=== PATIENT | female | born 1980 | race Caucasian/White ===

== ENCOUNTER 2020-06-28 11:44 | Emergency (ER) | payer MEDICAID, SELFPAY ==
[2020-06-28 12:07] VITALS: BP 190/96; PULSE 70; RESP 18; TEMP 36; O2SAT 99
--- NOTE | 2020-06-28 12:25 | XR_ITS ---
EXAMINATION: XR SACRUM AND COCCYX CLINICAL INFORMATION: Pain post fall COMPARISON: None TECHNIQUE: 2 views of the sacrum and 2 views of the coccyx were obtained. FINDINGS: There are no fractures. No bone, joint or soft tissue abnormality is demonstrated. XR/XR sacrum coccyx min 2V IMPRESSION: Unremarkable examination.
--- NOTE | 2020-06-28 13:02 | ED.FALL ---
HPI - Fall General Chief Complaint: Fall Stated Complaint: fall Time Seen by Provider: 06/28/20 12:24 Source: patient Mode of arrival: ambulatory Limitations: no limitations History of Present Illness HPI Narrative: 40 y/o female with history of gastric bypass presents with buttocks pain after she slipped and fell on her wooden steps at home last night. She denies other injury. No numbness or tingling down her legs. She has difficulty walking because of the pain. She has taken tylenol and aleve without improvement. Related Data Previous Rx's Medication Instructions Recorded acetaminophen [Tylenol Arthritis 650 mg PO Q8H PRN #30 tab 06/28/20 Pain] oxycodone 5 mg PO Q6H PRN #10 tab 06/28/20 Allergies Allergy/AdvReac Type Severity Reaction Status Date / Time No Known Allergies Allergy Verified 06/28/20 12:07 [No Known Allergies*] Review of Systems Review of Systems: Constitutional: No Fever, No Chills Cardiovascular: No Chest Pain Respiratory: No Cough, No Sputum Gastrointestinal: No Nausea, No Vomiting, No Diarrhea, No abdominal Pain Musculoskeletal: + joint pain, + Myalgias Skin: No Skin Lesions Neuro: No Weakness, No Numbness, No Dizziness, No Headache Heme/Lymph: + Bruising PMFSH Past Medical History Attestation statement: The following information was validated with the patient. Surgical History Bariatric surgery status deliv NOS-unsp Social History Social History Advance Directives: No Advance Directives Information Provided: No Physical Exam Vital Signs: Vital Signs: Last Vital Signs Temp 96.8 F 06/28/20 12:07 Pulse 55 06/28/20 13:24 Resp 18 06/28/20 12:07 BP 163/71 H 06/28/20 13:24 Pulse Ox 99 06/28/20 12:07 Body Mass Index 30.0 Appearance: Alert. Oriented X3. No acute distress. HEENT: normal inspection Respiratory: No respiratory distress. Skin: Skin warm and dry. Normal skin color. Normal skin turgor. No rashes. Back: tenderness and ecchyosis over coccyx, no palpable deformity. pelvis is stable. Extremities: atraumtic, normal inspection of LE. Neuro: Oriented X 3. No motor deficit. No sensory deficit. Course Course Course Narrative: 40 y/o female presenting with coccyx injury. XR negative for fracture. Exam has bruising and tenderness consistent with contusion. Ice applied - Rx sent for oxycodone and tylenol. Unable to take NSAID due to gastric bypass history. BP very elevated on arrival - she reports prior hx of HTN but no longer with her weight loss. She also reports having white coat syndrome and thinks her BP is also elevated due to pain. She denies chest pain, vision changes, headache. Repeat BP 160/70's. Stable for d/c. Discharge Plan Discharge Clinical Impression: Coccyx contusion Qualifiers: Encounter type: initial encounter Qualified Code(s): S30.0XXA - Contusion of lower back and pelvis, initial encounter Patient Disposition: Home, Self-Care Instructions: Coccyx Injury (ED) Additional Instructions: Your x-ray today did not show any fractures or abnormalities. Continue to use your circular pillow as needed. Use ice several times per day. Take prescribed pain medications as needed for pain. Follow up with your doctor next week. Prescriptions: New acetaminophen [Tylenol Arthritis Pain] 650 mg tablet extended release 650 mg PO Q8H PRN (Reason: pain) Qty: 30 RF: 0 oxycodone 5 mg tablet 5 mg PO Q6H PRN (Reason: pain) Qty: 10 RF: 0 Interventions: ED Discharge Assessment Last Done: 06/28/20 13:21 Discharge Date/Time: 06/28/20 13:25
[2020-06-28 13:24] VITALS: BP 163/71; PULSE 55
== END 2020-06-28 13:25 | disposition home or self-care (01) ==
PROVIDERS: Emergency Provider Emergency Medicine Emergency Medical Services; PCP Internal Medicine
DX: S30.0XXA Contusion of lower back and pelvis, initial encounter (principal); M54.5 Low back pain; M79.605 Pain in left leg; M79.604 Pain in right leg; Z98.84 Bariatric surgery status
CPT/HCPCS: 72220; 99283

== ENCOUNTER 2021-03-21 08:09 | Outpatient (REF) | payer MEDICAID, SELFPAY | END 2021-03-21 08:10 | disposition home or self-care (01) | LOC: HO.HOSX 08:09 | PROVIDERS: Visit Provider Physician Assistant | DX: Z13.89 Encounter for screening for other disorder (principal) ==

== ENCOUNTER 2021-08-31 20:06 | Emergency (ER) | payer MEDICAID, SELFPAY ==
--- NOTE | ~2021-08-31 | CT_ITS ---
EXAMINATION: CT HEAD WITHOUT CONTRAST CLINICAL INFORMATION: Fall. Head trauma. Rule out bleed. COMPARISON: Previous head CT April 2020 TECHNIQUE: Contiguous axial imaging was performed from the skull base to vertex without intravenous administration of contrast. This CT examination was performed using dose optimization techniques as appropriate, variously including the following: *Automated exposure control *Adjustment of mA and/or kV according to patient size (this includes techniques or standardized protocols for targeted exams where dose is matched to indication/reason for exam; i.e. extremities or head) *Use of iterative reconstruction technique DLP: 782 mGy-cm FINDINGS: There is no evidence of an extra-axial collection. There is no evidence of intra-axial or extra-axial hemorrhage. The ventricles and extra-axial CSF spaces are appropriate. Martines-white matter differentiation is normal. There is a low-attenuation lesion in the left basal ganglia unchanged from previous exams suggestive of an old lacunar infarct. No mass, mass effect or acute infarct is seen. There is high attenuation soft tissue swelling over the right frontal bone suggestive of a scalp hematoma. No skull fracture is seen. Visualized paranasal sinuses, mastoid air cells and middle ears are clear. CT/CT head/brain wo con IMPRESSION: No acute findings. Old left basal ganglia lacunar infarct. Right scalp hematoma.
[2021-08-31 20:08] VITALS: BP 188/100; PULSE 98; RESP 18; TEMP 36.6; O2SAT 99; BMI 29.1
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
[2021-08-31 20:42] LABS: COVID-19 Test Negative (Negative)
[2021-08-31] MEDS: LORazepam 1 MG TABLET 2 MG PO (20:46)
--- NOTE | 2021-08-31 20:49 | PC.NURSE ---
Pt is changed over into hospital attire, labs drawn and pt medicated per Mar. Will continue monitor.
[2021-08-31 20:55] LABS: MANUAL DIFF FLAG NO
[2021-08-31 20:58] LABS: Basophils Percent Auto 0.7 % (0-2); Eosinophils Absolute Auto 0.1 X10*3/uL (0.0-0.4); Eosinophils Percent Auto 1.5 % (0-4); Hematocrit 38.6 % (37.0-47.0); Imm Gran Abs Auto 0.01 X10*3/uL (0.00-0.03); Imm Gran Pct Auto 0.2 % (0.0-0.4); Lymphocytes Absolute Auto 2.9 X10*3/uL (1.2-4.9); Lymphocytes Percent Auto 48.5 % (20-40); Mean Corpuscular HGB Conc 33.7 g/dl (31.0-35.0); Mean Corpuscular Hemoglobin 31.4 pg (27.0-33.0); Mean Corpuscular Volume 93.2 fL (80.0-98.0); Monocytes Absolute Auto 0.4 X10*3/uL (0.1-1.2); Monocytes Percent Auto 5.9 % (2-11); Neutrophils Absolute Auto 2.6 x10*3/uL (2.0-8.3); Neutrophils Percent Auto 43.2 % (45-73); Platelet Count 158 X10*3/uL (160-400); Red Blood Count 4.14 X10*6/uL (4.20-5.50); Red Cell Distribution Width 14.3 % (11.0-16.0)
[2021-08-31 21:14] LABS: Ethanol 292 mg/dL
[2021-08-31 21:17] LABS: Alanine Aminotransferase 27 U/L (0-31); Albumin Level 3.9 g/dL (3.5-5.0); Alkaline Phosphatase 78 U/L (39-117); Anion Gap 17 (12-20); Aspartate Amino Transferase 44 U/L (5-31); Bilirubin Total 0.7 mg/dL (0.0-1.0); Blood Urea Nitrogen 8 mg/dL (9-16); Calcium 8.4 mg/dL (8.4-10.2); Carbon Dioxide 24 mmol/L (22-29); Chloride 106 mmol/L (96-108); Creatinine Clr Calc Pharmacy 114.5; Estimated Glomerular Filt Rate > 60; Glucose Random 78 mg/dL (60-115); Potassium 3.1 mmol/L (3.3-5.1); Sodium 144 mmol/L (135-145); Total Protein 7.2 g/dL (6.5-8.0)
--- NOTE | 2021-08-31 21:20 | PC.NURSE ---
PT MEDICATED PER MAR
--- NOTE | 2021-08-31 21:22 | PC.NURSE ---
PT MEDICATED PER MAR.
[2021-09-01] MEDS: Potassium Bicarbonate/Cit AC 25 MEQ TABLET.EFF PO (00:11)
[2021-09-01] MEDS: Thiamine HCL 100 MG TABLET PO (01:26)
[2021-09-01] MEDS: Folic Acid 1 MG TABLET PO (01:26)
[2021-09-01 03:54] VITALS: BP 168/98; PULSE 82; RESP 20; TEMP 37.1; O2SAT 95
--- NOTE | 2021-09-01 06:03 | PC.NURSE ---
Patient slept through the night, no distress observed/reported, behavior appropriate, medication compliant, [facility] referral completed/confirmed, pending evaluation in the morning, asymptomatic withdrawal at this time, will continue to monitor.
[2021-09-01 06:49] LABS: Appearance Urine CLOUDY; Color Urine YELLOW; Glucose Urine UA NEG (NEG); Leukocyte Esterase Urine TRACE (NEG); Nitrite Urine POS (NEG); UACC Culture Trigger YES; Urine Blood NEG (NEG); Urine Ketones NEG (NEG); Urine Protein TRACE MG/DL (NEG-TRACE)
[2021-09-01 06:50] LABS: UPreg QC Valid YES; Urine Pregnancy NEGATIVE (NEGATIVE)
[2021-09-01 06:59] LABS: Amphetamine Screen Urine Not Detected (Not Detect); Barbiturates, Urine Not Detected (Not Detect); Benzodiazepines Screen Urine Not Detected (Not Detect); Cannabinoid Screen Urine POSITIVE (Not Detect); Cocaine Screen Urine POSITIVE (Not Detect); Fentanyl, urine Not Detected (Not Detect); Opiate Screen Urine Not Detected (Not Detect); Phencyclidine Screen Urine Not Detected (Not Detect)
[2021-09-01 07:02] LABS: Bacteria Urine 4+ /LPF; RBC Urine 0 /HPF (0); Squamous Epithelial Cell Urine 2+ /LPF; UACC CULT YES
[2021-09-01] MEDS: LORazepam 1 MG TABLET 2 MG PO ×3 (09:19→19:25)
--- NOTE | 2021-09-01 09:42 | MHC.CARE ---
Pt is a 41 year old female who presented to [facility] ED with a BAL 292 on 09/01/21 reporting suicidal ideation and wanting to get help. Pt is now clinically sober and reporting to t/w she came to the ED with her alcohol use and wanting to get into treatment. Pt presents as alert orientated and engaged with t/w. Pt reported drinking daily for the past 2-3 months and recently started feeling withdrawal symptom when she isn't drinking.. Pt denies current SI/HI/AH/VH. Pt reports no prior IPLOC admission . Plan for Pt to be referred to ATS placement. CARE Team reviewed plan with Dr. Frias who is in agreement with plan.
--- NOTE | 2021-09-01 09:52 | MHC.CARE ---
CARE Team to complete referral for [facility].
--- NOTE | 2021-09-01 09:58 | PC.NURSE ---
Pt received from material handler 1st shift: Pt AOX4 and offers mild complaints of anxiety. PRN ativan given. Heart sounds normal and lungs clear. Pt abd soft and non-tender. CARES to evaluate pt.
[2021-09-01] MEDS: Ondansetron ODT 4 MG TAB.RAPDIS TRANSLINGU ×3 (11:30→19:44)
--- NOTE | 2021-09-01 14:03 | MHC.CARE ---
CARE Team completed referral for [facility]
--- NOTE | 2021-09-01 15:03 | MHC.RECOVSUP ---
Recovery Support note: Patient is a 41 year old Congolese speaking female who presented to [facility] ED under the influence of alcohol reporting SI. Patient was evaluated by CARE Team and referred to this senior grant writer for assistance placing patient at an ATS facility. This senior grant writer discussed plan with patient and patient is in agreement. Patient has been referred to [facility] and completed phone intake. Nursing staff at [facility] requested a CT scan due to reported fall. CT report has been sent to nursing for review. Once approved, patient will be transported to [facility] via [facility] or [facility]. Discussed case with CARE Team.
[2021-09-01 19:26] VITALS: BP 189/97; PULSE 73; RESP 18; TEMP 36.8; O2SAT 97
[2021-09-01] MEDS: Potassium Chloride Packet 20 MEQ PACKET 40 MEQ PO (19:43)
[2021-09-01] MEDS: Nitrofurantoin Monohyd/M-Cryst 100 MG CAPSULE PO (19:44)
--- NOTE | 2021-09-01 21:04 | MHC.RECOVSUP ---
? Reason for consult:Recovery Support o Current location: Discharged o Identified substance use concern: - Seeking ATS (detox) - Support ? Intervention: o ATS bed search started/completed/in process ? Plan o Patient to follow up with [facility] after discharge ? Additional information: Patient sent to Siddharth Larios via [email or web address]
== END 2021-09-01 20:10 | disposition home or self-care (01) ==
PROVIDERS: Internal Medicine; Emergency Provider Emergency Medicine Emergency Medical Services
DX: F33.1 Major depressive disorder, recurrent, moderate (principal); R45.851 Suicidal ideations; F10.129 Alcohol abuse with intoxication, unspecified; R51.9 Headache, unspecified; Y90.8 Blood alcohol level of 240 mg/100 ml or more; F41.1 Generalized anxiety disorder; F43.0 Acute stress reaction; Z20.822 Contact with and (suspected) exposure to COVID-19; Z79.899 Other long term (current) drug therapy
CPT/HCPCS: 36415; 70450; 80053; 80307; 81001; 81025; 82077; 83735; 85025; 87086; 87088; 87186; 87635; 99284

== ENCOUNTER 2022-03-30 15:01 | Emergency (ER) | payer MEDICAID, SELFPAY ==
[2022-03-30 15:05] VITALS: BP 146/100; PULSE 87; RESP 18; TEMP 37.2; O2SAT 98; BMI 29.9
== END 2022-03-30 21:50 | disposition left against medical advice (07) ==
LOC: HO.ED 21:42
PROVIDERS: Emergency Provider Emergency Medicine; PCP Internal Medicine
DX: T78.40XA Allergy, unspecified, initial encounter (principal); L50.9 Urticaria, unspecified; X58.XXXA Exposure to other specified factors, initial encounter
CPT/HCPCS: 99281

== ENCOUNTER 2022-04-02 20:15 | Emergency (ER) | payer MEDICAID, SELFPAY ==
--- NOTE | ~2022-04-02 | CT_ITS ---
EXAMINATION: CT ABDOMEN AND PELVIS WITHOUT CONTRAST CLINICAL INFORMATION: Right flank pain COMPARISON: 04/27/2020 TECHNIQUE: Multidetector volumetric imaging was performed from the superior aspect of the liver through the pubic symphysis. Sagittal and coronal reformatted images were obtained on the technologist's workstation. This CT examination was performed using dose optimization techniques as appropriate, variously including the following: *Automated exposure control *Adjustment of mA and/or kV according to patient size (this includes techniques or standardized protocols for targeted exams where dose is matched to indication/reason for exam; i.e. extremities or head) *Use of iterative reconstruction technique DLP: 621 mGy-cm FINDINGS: LUNG BASES: The visualized lung bases are unremarkable. LIVER, GALLBLADDER, AND BILIARY TREE: Liver is normal in size, contour and morphology. Diffuse hepatic steatosis. No focal liver lesions. No biliary dilatation. Cholecystectomy. PANCREAS: Unremarkable. SPLEEN: Unremarkable. ADRENAL GLANDS: Unremarkable. KIDNEYS AND URETERS: The kidneys are normal in size, shape, and attenuation. No hydronephrosis, hydroureter, or calculi seen. No perinephric stranding. BLADDER: Unremarkable. GASTROINTESTINAL TRACT: Sleeve gastrectomy. The small and large bowel are unremarkable. The appendix is unremarkable. ABDOMINAL WALL: No significant hernia is appreciated. LYMPH NODES: Normal. VASCULAR: Aorta is mildly atherosclerotic but normal caliber. PELVIC VISCERA: Uterus and ovaries unremarkable. OSSEOUS STRUCTURES: No acute or suspicious osseous abnormalities. CT/CT abdomen pelvis wo IV con IMPRESSION: * No acute findings within the abdomen or pelvis. * Diffuse hepatic steatosis. * Sleeve gastrectomy and cholecystectomy.
[2022-04-02 20:26] VITALS: BP 170/93; BP 172/91; PULSE 96; PULSE 97; RESP 16; TEMP 36.8; O2SAT 95; O2SAT 96; BMI 33.4
[2022-04-02 20:32] LABS: Glucose, Whole Blood 71 mg/dL (60-115)
--- NOTE | 2022-04-02 20:44 | ED.FEMALEGU ---
HPI - Female Genitourinary General Chief complaint: Urogenital-Female Stated complaint: Rt side Flank Pain Time Seen by Provider: 04/02/22 20:44 Source: patient Mode of arrival: EMS Limitations: no limitations History of Present Illness HPI Narrative: Patient with no history of kidney stones complaining of pain right flank area radiating to the right lower abdomen for last 1 week got worse last night with nausea no vomiting no urinary complaints. Patient never had similar pain in the past Related Data Previous Rx's Medication Instructions Recorded nitrofurantoin 100 mg PO Q12H 7 days #14 caps 09/01/21 monohydrate/macrocrystals 100 mg capsule (Macrobid) tramadol 50 mg tablet 50 mg PO Q6H PRN pain #15 tabs 04/03/22 Allergies Allergy/AdvReac Type Severity Reaction Status Date / Time No Known Allergies Allergy Verified 08/31/21 20:08 [No Known Allergies*] Review of Systems Review of Systems: Yes all other systems are reviewed and are negative PMFSH Past Medical History Surgical History Bariatric surgery status deliv NOS-unsp Social History Social History Advance Directives: No Advance Directives Information Provided: Yes Physical Exam Vital Signs: Vital Signs: Last Vital Signs Temp 98.2 F 04/02/22 20:26 Pulse 96 04/02/22 20:26 Resp 16 04/02/22 20:26 BP 170/93 H 04/02/22 20:26 Pulse Ox 95 04/02/22 20:26 O2 Del Method 04/02/22 20:26 BMI result Body Mass Index 33.4 Appearance: Alert. Oriented X3. In moderate distress. ENT: Pharynx normal. Oral Mucosa moist Neck: Normal inspection. Neck supple. CVS: Normal heart rate and rhythm. Pulses normal. Respiratory: No respiratory distress. Equal air entry bilateral, no wheezing/rales/rhonchi Abdomen: Soft and nontender. Bowel sounds are present, no mass palpable, R CVA tenderness Skin: Skin warm and dry. Normal skin color. Normal skin turgor. Extremities: No lower extremity edema. No calf tenderness Neuro: Oriented X 3. No motor deficit. MDM - Female Genitourinary MDM Narrative Medical decision making narrative: 2199 Patient very sensitive to even touching the right flank area no vomiting eating well at home not sure possible UTI versus kidney stone. CT scan is negative for anything acute awaiting for the UA Patient very dramatic with pain urine is negative except for small amount of blood as patient is on her menses likely musculoskeletal pain Differential Diagnosis Differential diagnosis: Likely urinary tract infection and ovarian cyst Lab Data Attestation: I reviewed the patient's lab results. Result diagrams: 04/02/22 21:03 04/02/22 21:03 Labs: Lab Results 04/02/22 04/02/22 04/02/22 Range/Units 20:29 21:03 21:03 WBC 5.7 (4.8-10.8) X10*3/uL RBC 4.22 (4.20-5.50) X10*6/uL Hgb 12.7 (12.0-16.0) g/dl Hct 37.4 (37.0-47.0) % MCV 88.6 (80.0-98.0) fL MCH 30.1 (27.0-33.0) pg MCHC 34.0 (31.0-35.0) g/dl RDW 15.8 (11.0-16.0) % Plt Count 157 L (160-400) X10*3/uL MPV 10.0 (9.4-12.3) fL Immature Gran % (Auto) 0.2 (0.0-0.4) % Neut % (Auto) 57.4 (45-73) % Lymph % (Auto) 27.1 (20-40) % [place] % (Auto) 5.2 (2-11) % Eos % (Auto) 8.9 H (0-4) % Baso % (Auto) 1.2 (0-2) % Lymph # (Auto) 1.6 (1.2-4.9) X10*3/uL [place] # (Auto) 0.3 (0.1-1.2) X10*3/uL Eos # (Auto) 0.5 H (0.0-0.4) X10*3/uL Baso # (Auto) 0.1 (0.0-0.2) X10*3/uL Abs Immat Gran (auto) 0.01 (0.00-0.03) X10*3/uL Absolute Neuts (auto) 3.3 (2.0-8.3) x10*3/uL Absolute Nucleated RBC 0.000 (0.0-0.012) X10*3/uL Nucleated RBC % (auto) 0.0 (0.0-0.2) /100WBC Sodium 138 (135-145) mmol/L Potassium 3.7 (3.3-5.1) mmol/L Chloride 104 (96-108) mmol/L Carbon Dioxide 17 L (22-29) mmol/L Anion Gap 21 H (12-20) BUN 10 (9-16) mg/dL Creatinine 0.61 (0.5-1.4) mg/dL Estim Creat Clear Calc 131.9 Estimated GFR > 60 POC Glucose 71 (60-115) mg/dL Random Glucose 85 (60-115) mg/dL Calcium 7.9 L (8.4-10.2) mg/dL Total Bilirubin 1.2 H (0.0-1.0) mg/dL AST 26 D (5-31) U/L ALT 15 (0-31) U/L Alkaline Phosphatase 77 (39-117) U/L Total Protein 6.8 (6.5-8.0) g/dL Albumin 3.8 (3.5-5.0) g/dL Lipase 17 (8-78) U/L Urine Color Urine Appearance Urine pH (5.0-9.0) Ur Specific [place] (1.005-1.025) Urine Protein (Neg-Trace) mg/dL Urine Glucose (UA) (Negative) mg/dL Urine Ketones (Negative) mg/dL Urine Blood (Negative) Urine Nitrite (Negative) Ur Leukocyte Esterase (Negative) Urine RBC (0-2) /HPF Urine WBC (0-5) /HPF Ur Squamous Epith Cells (0-2) /HPF Urine Bacteria (None Seen) Hyaline Casts (0-2) /LPF 04/02/22 Range/Units 23:33 WBC (4.8-10.8) X10*3/uL RBC (4.20-5.50) X10*6/uL Hgb (12.0-16.0) g/dl Hct (37.0-47.0) % MCV (80.0-98.0) fL MCH (27.0-33.0) pg MCHC (31.0-35.0) g/dl RDW (11.0-16.0) % Plt Count (160-400) X10*3/uL MPV (9.4-12.3) fL Immature Gran % (Auto) (0.0-0.4) % Neut % (Auto) (45-73) % Lymph % (Auto) (20-40) % Gladwin % (Auto) (2-11) % Eos % (Auto) (0-4) % Baso % (Auto) (0-2) % Lymph # (Auto) (1.2-4.9) X10*3/uL [place]win # (Auto) (0.1-1.2) X10*3/uL Eos # (Auto) (0.0-0.4) X10*3/uL Baso # (Auto) (0.0-0.2) X10*3/uL Abs Immat Gran (auto) (0.00-0.03) X10*3/uL Absolute Neuts (auto) (2.0-8.3) x10*3/uL Absolute Nucleated RBC (0.0-0.012) X10*3/uL Nucleated RBC % (auto) (0.0-0.2) /100WBC Sodium (135-145) mmol/L Potassium (3.3-5.1) mmol/L Chloride (96-108) mmol/L Carbon Dioxide (22-29) mmol/L Anion Gap (12-20) BUN (9-16) mg/dL Creatinine (0.5-1.4) mg/dL Estim Creat Clear Calc Estimated GFR POC Glucose (60-115) mg/dL Random Glucose (60-115) mg/dL Calcium (8.4-10.2) mg/dL Total Bilirubin (0.0-1.0) mg/dL AST (5-31) U/L ALT (0-31) U/L Alkaline Phosphatase (39-117) U/L Total Protein (6.5-8.0) g/dL Albumin (3.5-5.0) g/dL Lipase (8-78) U/L Urine Color Yellow Urine Appearance Clear Urine pH 6.0 (5.0-9.0) Ur Specific [place] >= 1.030 H (1.005-1.025) Urine Protein Negative (Neg-Trace) mg/dL Urine Glucose (UA) Negative (Negative) mg/dL Urine Ketones 40 (Negative) mg/dL Urine Blood Large (3+) H (Negative) Urine Nitrite Negative (Negative) Ur Leukocyte Esterase Negative (Negative) Urine RBC 0-2 (0-2) /HPF Urine WBC 0-5 (0-5) /HPF Ur Squamous Epith Cells 6-10 (0-2) /HPF Urine Bacteria None Seen (None Seen) Hyaline Casts 0-2 (0-2) /LPF Imaging Data CT scan - abdomen: Attestation: I personally reviewed and interpreted this imaging study as follows: Radiologist's impression: CT/CT abdomen pelvis wo IV con IMPRESSION: *? No acute findings within the abdomen or pelvis. *? Diffuse hepatic steatosis. *? Sleeve gastrectomy and cholecystectomy. Discharge Plan Discharge Clinical Impression: Flank pain Patient Disposition: Home, Self-Care Instructions: Flank Pain (ED) Additional Instructions: No signs of infection or kidney stone was seen as a cause of pain Pain medication as prescribed and follow-up with PCP Prescriptions: New tramadol 50 mg tablet 50 mg PO Q6H PRN (Reason: pain) Qty: 15 0RF No Action nitrofurantoin monohyd/m-cryst [Macrobid] 100 mg capsule 100 mg PO Q12H 7 Days Qty: 14 0RF Rx Instructions: must administer with a meal/food
[2022-04-02] MEDS: Morphine Sulfate 4 MG/ML CARTRIDGE IVPUSH (21:10)
[2022-04-02] MEDS: ondansetron HCL 4 MG/2 ML VIAL IVPUSH (21:10)
[2022-04-02] MEDS: 0.9 % Sodium Chloride 1,000 ML 999 ML IV (21:11)
[2022-04-02 21:12] LABS: MANUAL DIFF FLAG NO
[2022-04-02 21:18] LABS: Basophils Absolute Auto 0.1 X10*3/uL (0.0-0.2); Basophils Percent Auto 1.2 % (0-2); Eosinophils Absolute Auto 0.5 X10*3/uL (0.0-0.4); Eosinophils Percent Auto 8.9 % (0-4); Hematocrit 37.4 % (37.0-47.0); Hemoglobin 12.7 g/dl (12.0-16.0); Imm Gran Abs Auto 0.01 X10*3/uL (0.00-0.03); Imm Gran Pct Auto 0.2 % (0.0-0.4); Lymphocytes Absolute Auto 1.6 X10*3/uL (1.2-4.9); Lymphocytes Percent Auto 27.1 % (20-40); Mean Corpuscular Hemoglobin 30.1 pg (27.0-33.0); Mean Corpuscular Volume 88.6 fL (80.0-98.0); Monocytes Absolute Auto 0.3 X10*3/uL (0.1-1.2); Monocytes Percent Auto 5.2 % (2-11); Neutrophils Absolute Auto 3.3 x10*3/uL (2.0-8.3); Neutrophils Percent Auto 57.4 % (45-73); Platelet Count 157 X10*3/uL (160-400); Red Blood Count 4.22 X10*6/uL (4.20-5.50); Red Cell Distribution Width 15.8 % (11.0-16.0); WBC ABN SCTR 1
[2022-04-02 21:19] LABS: WBC ABN SCTR FOR CBC 1; White Blood Count 5.7 X10*3/uL (4.8-10.8)
[2022-04-02 21:49] LABS: Alanine Aminotransferase 15 U/L (0-31); Albumin Level 3.8 g/dL (3.5-5.0); Alkaline Phosphatase 77 U/L (39-117); Anion Gap 21 (12-20); Aspartate Amino Transferase 26 U/L (5-31); Bilirubin Total 1.2 mg/dL (0.0-1.0); Blood Urea Nitrogen 10 mg/dL (9-16); Calcium 7.9 mg/dL (8.4-10.2); Carbon Dioxide 17 mmol/L (22-29); Chloride 104 mmol/L (96-108); Creatinine Clr Calc Pharmacy 131.9; Estimated Glomerular Filt Rate > 60; Glucose Random 85 mg/dL (60-115); Lipase 17 U/L (8-78); Potassium 3.7 mmol/L (3.3-5.1); Sodium 138 mmol/L (135-145); Total Protein 6.8 g/dL (6.5-8.0)
[2022-04-02 23:39] LABS: Appearance Urine Clear; Color Urine Yellow; Glucose Urine UA Negative (Negative); Leukocyte Esterase Urine Negative (Negative); Nitrite Urine Negative (Negative); Specific Gravity - Urine >= 1.030 (1.005-1.025); Urine Blood Large (3+) (Negative); Urine Ketones 40 mg/dL (Negative); Urine Protein Negative (Neg-Trace)
[2022-04-02] MEDS: Ketorolac Tromethamine 30 MG/ML VIAL IVPUSH (23:44)
[2022-04-02 23:45] LABS: Bacteria Urine None Seen (None Seen); Hyaline Casts Urine 0-2 /LPF (0-2); RBC Urine 0-2 /HPF (0-2); WBC Urine 0-5 /HPF (0-5)
[2022-04-03 00:28] VITALS: BP 170/82; PULSE 78; RESP 16; O2SAT 96
[2022-04-03] MEDS: traMADoL HCL 50 MG TABLET PO (00:44)
== END 2022-04-03 00:46 | disposition home or self-care (01) ==
PROVIDERS: Emergency Provider Internal Medicine
DX: R10.9 Unspecified abdominal pain (principal); Z98.84 Bariatric surgery status
CPT/HCPCS: 36415; 74176; 80053; 81001; 82947; 83690; 85025; 96374; 96375; 99284; J1885; J2270; J2405

== ENCOUNTER 2022-05-30 23:07 | Emergency (ER) | payer MEDICAID, SELFPAY ==
[2022-05-30 23:17] VITALS: BP 188/139; PULSE 83; RESP 19; TEMP 36.9; O2SAT 98; BMI 29.9
[2022-05-30 23:31] LABS: Basophils Absolute Auto 0.1 X10*3/uL (0.0-0.2); Basophils Percent Auto 1.6 % (0-2); Eosinophils Percent Auto 0.8 % (0-4); Hematocrit 40.4 % (37.0-47.0); Hemoglobin 13.7 g/dl (12.0-16.0); Lymphocytes Absolute Auto 2.9 X10*3/uL (1.2-4.9); Lymphocytes Percent Auto 58.5 % (20-40); MANUAL DIFF FLAG NO; Mean Corpuscular HGB Conc 33.9 g/dl (31.0-35.0); Mean Corpuscular Hemoglobin 30.9 pg (27.0-33.0); Mean Platelet Volume 9.4 fL (9.4-12.3); Monocytes Absolute Auto 0.4 X10*3/uL (0.1-1.2); Neutrophils Absolute Auto 1.6 x10*3/uL (2.0-8.3); Neutrophils Percent Auto 32.1 % (45-73); Platelet Count 210 X10*3/uL (160-400); Red Blood Count 4.44 X10*6/uL (4.20-5.50); Red Cell Distribution Width 17.5 % (11.0-16.0)
[2022-05-30 23:48] LABS: Alanine Aminotransferase 18 U/L (0-31); Albumin Level 4.1 g/dL (3.5-5.0); Alkaline Phosphatase 80 U/L (39-117); Anion Gap 16 (12-20); Aspartate Amino Transferase 33 U/L (5-31); Bilirubin Total 0.6 mg/dL (0.0-1.0); Blood Urea Nitrogen 10 mg/dL (9-16); Calcium 8.5 mg/dL (8.4-10.2); Carbon Dioxide 27 mmol/L (22-29); Chloride 107 mmol/L (96-108); Creatinine Clr Calc Pharmacy 120.2; Estimated Glomerular Filt Rate > 60; Ethanol 333 mg/dL; Glucose Random 86 mg/dL (60-115); Potassium 3.6 mmol/L (3.3-5.1); Sodium 146 mmol/L (135-145); Total Protein 7.5 g/dL (6.5-8.0)
[2022-05-31] VITALS (11 sets, daily range): BP systolic 140–160; BP diastolic 68–94; PULSE 74–81; RESP 16–24; TEMP 36.7; O2SAT 95–98
--- NOTE | 2022-05-31 00:07 | ED.ALCOHOL ---
HPI - Alcohol General Chief Complaint: ETOH/Substance Use Stated Complaint: withdrawal ,? detox Time Seen by Provider: 05/30/22 23:58 Source: patient Mode of arrival: ambulatory Limitations: no limitations History of Present Illness complaint: alcohol dependence and desires rehab Last drink: Just prior to admission Chronic alcohol use: Yes Previous visits for alcohol intoxication: Yes Recent trauma: No Associated symptoms: nausea and vomiting Treatments prior to arrival: none Related Data Previous Rx's Medication Instructions Recorded nitrofurantoin 100 mg PO Q12H 7 days #14 caps 09/01/21 monohydrate/macrocrystals 100 mg capsule (Macrobid) tramadol 50 mg tablet 50 mg PO Q6H PRN pain #15 tabs 04/03/22 Allergies Allergy/AdvReac Type Severity Reaction Status Date / Time No Known Allergies Allergy Verified 08/31/21 20:08 [No Known Allergies*] Review of Systems Review of Systems: Constitutional : No Weight loss, No Fever, No Chills ENT/Mouth : No sore throat, No Rhinorrhea Eyes: No Swelling, No Redness Cardiovascular : No Chest Pain, No SOB, NoEdema Respiratory : No Cough, No Sputum, No Wheezing Gastrointestinal : Positive Nausea, Positive Vomiting, no Diarrhea, no abdominal Pain, No Hematochezia, No Melena Genitourinary : No Dysuria, No Urinary Frequency, No Hematuria, No Urgency Musculoskeletal : No joint pain, No Myalgias, No Joint Swelling Skin : No Skin Lesions, No rash Neuro : No Weakness, No Numbness, No Dizziness, No Headache Psych : pos Anxiety/Panic, No Depression Heme/Lymph: No Bruising, No Lymphadenopathy Endocrine : No Polyuria, No Polydipsia All other systems reviewed and are negative. [facility] Past Medical History Attestation statement: The following information was validated with the patient. Medical History Alcohol abuse Surgical History Bariatric surgery status deliv NOS-unsp Social History Social History (Updated 05/31/22 @ 00:27 by Pratima Rushing DO) Alcohol intake: current Patient Tobacco Use Status: Current someday Tobacco user Advance Directives: No Physical Exam ED Vital Signs: Vital Signs - 24 hr 05/30/22 23:17 Temperature 98.5 F Pulse Rate 83 Respiratory Rate 19 Blood Pressure 188/139 H Pulse Oximetry 98 Oxygen Delivery Method Room Air BMI result Body Mass Index 29.9 Appearance: Alert. Oriented X3. No acute distress. ETOH odor, slurred speech, active vomiting Eyes: Pupils equal, round and reactive to light. ENT: Pharynx normal. Neck: Normal inspection. Neck supple. CVS: Normal heart rate and rhythm. Pulses normal. Respiratory: No respiratory distress. Breath sounds normal. Abdomen: Soft and nontender. Skin: Skin warm and dry. Normal skin color. Normal skin turgor. Extremities: No lower extremity edema. Neuro: Oriented X 3. No motor deficit. No sensory deficit. Course Course Course Narrative: Physician observation started at 1228am. Patient placed in physician observation because the patient needed more time for medications to work and to see CARE team/recovery coaches to be evaluated for detox. At the time observation was started the patient's vitals were stable, patient is alert and oriented but slightly anxious and vomiting, Neuro: nonfocal, CV RRR, Lungs clear MDM - Alcohol MDM Narrative Medical decision making narrative: 42 yo female with hx of ETOH abuse here with vomiting and ETOH level of 333 asking for detox help at this time will obtain labs, hydrate, start on thiamine, give zofran and dose of versed, PRN ativan and refer to recovery team in AM. Lab Data Result diagrams: 05/30/22 23:24 05/30/22 23:24 Labs: Lab Results 05/30/22 05/30/22 Range/Units 23:24 23:24 WBC 5.0 (4.8-10.8) X10*3/uL RBC 4.44 (4.20-5.50) X10*6/uL Hgb 13.7 (12.0-16.0) g/dl Hct 40.4 (37.0-47.0) % MCV 91.0 (80.0-98.0) fL MCH 30.9 (27.0-33.0) pg MCHC 33.9 (31.0-35.0) g/dl RDW 17.5 H (11.0-16.0) % Plt Count 210 D (160-400) X10*3/uL MPV 9.4 (9.4-12.3) fL Immature Gran % (Auto) 0.0 (0.0-0.4) % Neut % (Auto) 32.1 L (45-73) % Lymph % (Auto) 58.5 H (20-40) % [place] % (Auto) 7.0 (2-11) % Eos % (Auto) 0.8 (0-4) % Baso % (Auto) 1.6 (0-2) % Lymph # (Auto) 2.9 (1.2-4.9) X10*3/uL [place] # (Auto) 0.4 (0.1-1.2) X10*3/uL Eos # (Auto) 0.0 (0.0-0.4) X10*3/uL Baso # (Auto) 0.1 (0.0-0.2) X10*3/uL Abs Immat Gran (auto) 0.00 (0.00-0.03) X10*3/uL Absolute Neuts (auto) 1.6 L (2.0-8.3) x10*3/uL Absolute Nucleated RBC 0.000 (0.0-0.012) X10*3/uL Nucleated RBC % (auto) 0.0 (0.0-0.2) /100WBC Sodium 146 H (135-145) mmol/L Potassium 3.6 (3.3-5.1) mmol/L Chloride 107 (96-108) mmol/L Carbon Dioxide 27 (22-29) mmol/L Anion Gap 16 (12-20) BUN 10 (9-16) mg/dL Creatinine 0.65 (0.5-1.4) mg/dL Estim Creat Clear Calc 120.2 Estimated GFR > 60 Random Glucose 86 (60-115) mg/dL Calcium 8.5 D (8.4-10.2) mg/dL Total Bilirubin 0.6 (0.0-1.0) mg/dL AST 33 H (5-31) U/L ALT 18 (0-31) U/L Alkaline Phosphatase 80 (39-117) U/L Total Protein 7.5 (6.5-8.0) g/dL Albumin 4.1 (3.5-5.0) g/dL Ethyl Alcohol 333 H* mg/dL Discharge Plan Discharge Clinical Impression: Alcoholic intoxication, Vomiting Patient Disposition: Still a Patient Prescriptions: No Action tramadol 50 mg tablet 50 mg PO Q6H PRN (Reason: pain) Qty: 15 0RF nitrofurantoin monohyd/m-cryst [Macrobid] 100 mg capsule 100 mg PO Q12H 7 Days Qty: 14 0RF Rx Instructions: must administer with a meal/food
[2022-05-31] MEDS: 0.9 % Sodium Chloride 1,000 ML 999 ML IV (00:19)
[2022-05-31] MEDS: Midazolam HCl/PF 2 MG/2 ML VIAL IVPUSH (00:19)
[2022-05-31] MEDS: ondansetron HCL 4 MG/2 ML VIAL IVPUSH (00:19)
--- OUTSIDE RECORDS SUMMARY | 2022-05-31 00:22 | XMS_ITS | Continuity of Care Document ---
:1980 Author Organization [facility] Address [address] [place] [id number]- Care Team Providers Name Role Phone Emma Honag MD Primary Care Physician [place] [facility] [place] - 04/21/[address] [address]- Encounter Diagnosis Leg pain (Final) - 04/21/22 Discharge Disposition: A-D/C Home Attending Physician: Mookie Tolentino MD Admitting Physician: Mookie Tolentino MD Referring Physician: Not on Staff, Referring MD Allergies, Adverse Reactions, Alerts No Known Allergies Immunizations Given and Recorded Vaccine Date Status Refusal Reason tetanus/diphtheria/pertussis, acel(Tdap) 11/12/14 Given Tetanus Toxoid Vaccine (oldterm) 01/30/03 Given Not Given Vaccine Date Status Refusal Reason pneumococcal 23-valent vaccine 04/28/20 Not Given P atient Refuses pneumococcal 23-valent vaccine 02/09/15 Not Given P atient Refuses influenza virus vaccine, inactivated 04/28/20 Not Given Patient Refuses Medications Depo-Provera Contraceptive 150 mg/mL intramuscular suspension = 150 mg, Intramuscular, Once, # 1 mL, 0 Refills, Soft Stop, 10/26/18 12:35:18 EDT Start Date: 10/26/18 Status: Ordereddocusate sodium 100 mg oral capsule 100 mg, 1, capsule, By Mouth, 2 times a day, # 60 capsule, Refills 0, Tot. Refills 0, Maintenance, 04/30/20 11:14:00 EDT, Route to Pharmacy Electronically, [facility], 164, cm, 04/29/20 3:39:00 EDT, Height, 81, kg, 04/27/20 10:33:00 EDT,... Start Date: 04/30/20 Status: Orderedlisinopril 5 mg oral tablet 5 mg, 1, tablet, By Mouth, Daily, # 14 tablet, Refills 0, Tot. Refills 0, Maintenance, 01/17/18 15:00:00 EDT, Print Requisition Start Date: 01/17/18 Stop Date: 01/31/18 Status: Ordered Problem List Condition Effective Dates Status Health Status Informant No pap smears in CIS(Confirmed) Active Sleep related hypoxia(Confirmed) Active Morbid obesity with BMI of 40.0-44.9, Active adult(Confirmed) AMA (advanced maternal age) Active multigravida 35+(Confirmed) DELROY (obstructive sleep Active apnea)(Confirmed) Current tobacco use(Confirmed) Active Vital Signs Most recent to oldest [Reference Range]: 1 Height 165 cm (04/21/22 1:43 PM) Weight 82 kg (04/21/22 1:43 PM) Oxygen Saturation [94-100 %] 98 % (04/21/22 1:54 PM) Pulse Rate [55-90 bpm] 74 bpm (04/21/22 1:54 PM) Blood Pressure [90-138/55-84 mm Hg] 147/83 mm Hg *H* (04/21/22 1:54 PM) Respiratory Rate [16-30 br/min] 18 br/min (04/21/22 1:54 PM) Temperature [96.8-100.4 DegF] 98.6 DegF (04/21/22 1:54 PM) Mode of Delivery (Oxygen) Room air (04/21/22 1:54 PM) Blood pressure sites Arm, right (04/21/22 1:54 PM) Temperature Route Oral (04/21/22 1:54 PM) Dry Weight 82 kg (04/21/22 1:43 PM) Social History Social History Type Response Smoking Status Current some day smoker; Typ e: Cigarettes; Tobacco use times per day: 10; Number of years: 10; entered on: 01/11/18 Sex Care Team PersonnelName: Emma Hoang MD Address: [address] [place] [address]
--- OUTSIDE RECORDS SUMMARY | 2022-05-31 00:22 | XMS_ITS | Continuity of Care Document ---
:1980 Author Organization [address] [place] [address]- Care Team Providers Name Role Phone Viktor BARRIOS, Emma Primary Care Physician Encounter [facility] Date(s): 05/08/20 - 06/07/[address] [place] [address]- Attending Physician: Jack Hernandez Admitting Physician: Jack Hernandez Referring Physician: AdmtrJack Allergies, Adverse Reactions, Alerts Substance Reaction Severity Status NKA Active Immunizations Given and Recorded Vaccine Date Status [...] 04/30/20 11:14:00 EDT, Route to Pharmacy Electronically, [facility], 164, cm, 04/29/20 3:39:00 EDT, [...] sleep Active apnea)(Confirmed) Current tobacco use(Confirmed) Active Social History Social History Type Response Smoking Status Current some day smoker; Typ e: Cigarettes; Tobacco use times per day: 10; Number of years: 10; entered on: 01/11/18 Sex
[2022-05-31] MEDS: Thiamine HCL 200 MG in 0.9 % Sodium Chloride 100 ML 204 MG IV (00:23)
--- OUTSIDE RECORDS SUMMARY | 2022-05-31 00:23 | XMS_ITS | Continuity of Care Document ---
:1980 Author Organization [facility] Address [address] [place] [address] Drive [address] [place] [address]- Care Team Providers Name Role Phone Viktor BARRIOS, Emma Primary Care Physician Encounter [facility] [place] Date(s): 05/08/20 - 05/15/[address] [place] [address]- [facility] Attending Physician: James ROSARIO MD, Rivas Armas Allergies, Adverse Reactions, Alerts Substance Reaction Severity [...] 04/30/20 11:14:00 EDT, Route to Pharmacy Electronically, [facility], 164, cm, 04/29/20 3:39:00 EDT, [...] recent to oldest [Reference Range]: 1 Height 164 cm (05/08/20 9:20 AM) Pulse Rate [55-90 bpm] 56 bpm (05/08/20 9:20 AM) Blood Pressure [90-138/55-84 mm Hg] 133/93 mm Hg (05/08/20 9:20 AM) Respiratory Rate [16-30 br/min] 20 br/min (05/08/20 9:20 AM) Temperature [96.8-100.4 DegF] 98.4 DegF (05/08/20 9:20 AM) Blood pressure sites Arm, left (05/08/20 9:20 AM) Temperature Route Temporal (05/08/20 9:20 AM) Social History Social History Type Response Smoking Status Current some day smoker; Typ e: Cigarettes; Tobacco use times per day: 10; Number of years: 10; entered on: 01/11/18 Sex
--- OUTSIDE RECORDS SUMMARY | 2022-05-31 00:23 | XMS_ITS | Continuity of Care Document ---
:1980 Author Organization [facility] Address [address] [place] [id number]- Care Team Providers Name Role Phone Emma Hoang MD Primary Care Physician [place] [facility] [place] 04/30/[address] [address]- [facility] Encounter Diagnosis Splenic laceration (Final) - 04/27/20 Discharge Disposition: A-D/C Home Attending Physician: Dayami Renteria MD Admitting Physician: Dayami Renteria MD Referring Physician: Not on Staff, Referring MD Allergies, Adverse Reactions, Alerts Substance Reaction Severity Status NKA Active Immunizations Not Given Vaccine Date Status Refusal Reason pneumococcal 23-valent vaccine 04/28/20 Not Given P atient Refuses influenza virus vaccine, inactivated 04/28/20 Not Given Patient Refuses Medications Dilaudid 2 mg oral tablet 1 tablet = 2 mg, By Mouth, Every 4 hours, PRN Pain , Moderate, for 3 days, # 18 tablet, 0 Refills, Acute 05/03/20 11:14:00 EDT, 04/30/20 11:14:00 EDT, Tablet, [facility], Partial fill upon patient request, 164, cm, 04/29/20 3:39:00 EDT,... Start Date: 04/30/20 Stop Date: 05/03/20 Status: Ordereddocusate sodium 100 mg oral capsule 100 mg, 1, capsule, By Mouth, 2 times a day, # 60 capsule, Refills 0, Tot. Refills 0, Maintenance, 04/30/20 11:14:00 EDT, Route to Pharmacy Electronically, [facility], 164, cm, 04/29/20 3:39:00 EDT, Height, 81, kg, 04/27/20 10:33:00 EDT,... Start Date: 04/30/20 Status: Orderedsenna 187 mg oral tablet 1 tablet = 8.6 mg, By Mouth, Daily, for 7 days, # 14 tablet, 0 Refills, Acute 05/07/20 11:14:00 EDT,04/30/20 11:14:00 EDT, Tablet, [facility], 164, cm, 04/29/20 3:39:00 EDT, Height, 81, kg, 04/27/20 10:33:00 EDT, Dry Weight Start Date: 04/30/20 Stop Date: 05/07/20 Status: OrderedTylenol 325 mg oral tablet 650 mg, 2, tablet, By Mouth, Every 4 hours, for 14 days, # 168 tablet, Refills 0, Tot. Refills 0, Acute 05/14/20 11:14:00 EDT, 04/30/20 11:14:00 EDT, Route to Pharmacy Electronically, [facility], 164, cm, 04/29/20 3:39:00 EDT, Height, 81... Start Date: 04/30/20 Stop Date: 05/14/20 Status: Ordered Results Radiology Reports Exam Date Time Procedure Performing Provider Status 04/27/20 3:21 AM Chest Portable Gelacio Wilhelm (Keri fan) Notes:(Chest Portable) Reason For Exam: Pain;Other:RESULT: Chest Portable Chest Portable AP supine at 3:15 AM INDICATION: Pain; Clinical Question(s): Fracture, pneumothorax, pulmonary contusion COMPARISON: None. FINDINGS: LINES AND TUBES: None. LUNGS AND PLEURA: Clear lungs. Normal pulmonary vascularity. No pleural effusion. No pneumothorax. HEART, MEDIASTINUM AND LEXIS: Heart is normal in size. Normal mediastinal and hilar contour. BONES AND SOFT TISSUES: No acute abnormality. There are surgical clips in the left upper quadrant. IMPRESSION: No evidence of acute abnormality. WSN: [id number] Ordering Physician: Maribel Dhillon Dictated By: Johnson Loyd MD Dictated Date/Time: 04/27/20 8:44 am Reviewed By: Johnson Loyd MD Signed By: Johnson Loyd MD Signed Date/Time: 04/27/20 8:44 am Transcribed By: KEDAR Transcribed Date/Time: 04/27/20 8:44 am Exam Date Time Procedure Performing Provider Status 04/27/20 3:40 AM Hand Min 3 Views Left Sherry Collazo; Auth ( Verified) Notes:(Hand Min 3 Views Left) Reason For Exam: with Pain;TraumaRESULT: Hand Min 3 Views Left Femur 2 Views Left, Shoulder Min 2 Views Left, Hand Min 3 Views Left, views Reason: Trauma; with Pain; Clinical Question(s): Fracture COMPARISON: None. FINDINGS: No fracture, dislocation or bone lesion. Visualized portions of the joints are normal. Normal soft tissues. IMPRESSION: No acute abnormality. WSN: [id number] Ordering Physician: Maribel Dhillon Dictated By: Gus Hernandez MD Dictated Date/Time: 04/27/20 8:26 am Reviewed By: Gus Hernandez MD Signed By: Gus Hernandez MD Signed Date/Time: 04/27/20 8:26 am Transcribed By: KEDAR Transcribed Date/Time: 04/27/20 8:21 am Exam Date Time Procedure Performing Provider Status 04/27/20 3:40 AM Shoulder Min 2 Views Left Sherry Collazo; Au th (Verified) Notes:(Shoulder Min 2 Views Left) Reason For Exam: with Pain;TraumaRESULT: Shoulder Min 2 Views Left Femur 2 Views Left, Shoulder Min 2 Views Left, Hand Min 3 Views Left, views Reason: Trauma; with Pain; Clinical Question(s): Fracture COMPARISON: None. FINDINGS: No fracture, dislocation or bone lesion. Visualized portions of the joints are normal. Normal soft tissues. IMPRESSION: No acute abnormality. WSN: [id number] Ordering Physician: Maribel Dhillon Dictated By: Gus Hernandez MD Dictated Date/Time: 04/27/20 8:26 am Reviewed By: Gus Hernandez MD Signed By: Gus Hernandez MD Signed Date/Time: 04/27/20 8:26 am Transcribed By: KEDAR Transcribed Date/Time: 04/27/20 8:21 am Exam Date Time Procedure Performing Provider Status 04/27/20 3:40 AM XR Femur 2 Views Left Sherry Collazo; Auth ( Verified) Notes:(XR Femur 2 Views Left) Reason For Exam: with Pain;TraumaRESULT: Femur 2 Views Left Femur 2 Views Left, Shoulder Min 2 Views Left, Hand Min 3 Views Left, views Reason: Trauma; with Pain; Clinical Question(s): Fracture COMPARISON: None. FINDINGS: No fracture, dislocation or bone lesion. Visualized portions of the joints are normal. Normal soft tissues. IMPRESSION: No acute abnormality. WSN: [id number] Ordering Physician: Maribel Dhillon Dictated By: Gus Hernandez MD Dictated Date/Time: 04/27/20 8:26 am Reviewed By: Gus Hernandez MD Signed By: Gus Hernandez MD Signed Date/Time: 04/27/20 8:26 am Transcribed By: KEDAR Transcribed Date/Time: 04/27/20 8:21 am Vital Signs Most recent to oldest 1 2 3 [Reference Range]: Height 164 cm 164 cm 164 cm (04/29/20 3:39 AM) (04/28/20 11:27 PM) (04/27/20 10 :33 AM) Weight 81 kg (04/27/20 10:33 AM) Oxygen Saturation [94-100 %] 99 % 96 % 96 % (04/30/20 8:00 AM) (04/29/20 10:23 PM) (04/29/20 7: 00 PM) Pulse Rate [55-90 bpm] 57 bpm 57 bpm 60 bpm (04/30/20 8:00 AM) (04/29/20 10:23 PM) (04/29/20 7: 00 PM) Body Mass Index [18.5-24.99] 30.12 *>HHI* (04/27/20 10:33 AM) Blood Pressure [90-138/55-84 159/94 mm Hg 143/74 mm Hg 159 /84 mm Hg mm Hg] *H* *H* *H* (04/30/20 8:00 AM) (04/29/20 10:23 PM) (04/29/20 7: 00 PM) Respiratory Rate [16-30 20 br/min 20 br/min 20 br/mi n br/min] (04/30/20 3:20 PM) (04/30/20 3:19 PM) (04/30/20 2:1 9 PM) Temperature [96.8-100.4 97.6 DegF 98.0 DegF 97.3 Deg F DegF] (04/30/20 8:00 AM) (04/29/20 10:23 PM) (04/29/20 7: 00 PM) Mode of Delivery (Oxygen) Room air Room air Room a ir (04/30/20 8:00 AM) (04/29/20 10:23 PM) (04/29/20 7: 00 PM) Blood pressure sites Arm, left Arm, left Arm, left (04/30/20 8:00 AM) (04/29/20 10:23 PM) (04/29/20 7: 00 PM) Temperature Route Oral Oral Oral (04/30/20 8:00 AM) (04/29/20 10:23 PM) (04/29/20 7: 00 PM) Dry Weight 81 kg (04/27/20 10:33 AM)
--- OUTSIDE RECORDS SUMMARY | 2022-05-31 00:23 | XMS_ITS | Continuity of Care Document ---
:1980 Author Organization [facility] Address [address] [place] [address]- Care Team Providers Name Role Phone Emma Hoang MD Primary Care Physician Encounter [facility] [place] Date(s): 01/22/20 - 01/22/[address] [address]- [facility] Discharge Disposition: A-D/C Walkout Attending Physician: Not on Staff, Attending MD Admitting Physician: Not on Staff, Admitting MD Referring Physician: Not on Staff, Referring MD Allergies, Adverse Reactions, Alerts Substance Reaction Severity Status NKA Active Immunizations Given and Recorded Vaccine Date Status Refusal Reason tetanus/diphtheria/pertussis, acel(Tdap) 11/12/14 Given Tetanus Toxoid Vaccine (oldterm) 01/30/03 Given Not Given Vaccine Date Status Refusal Reason pneumococcal 23-valent vaccine 02/09/15 Not Given P atient Refuses Medications Depo-Provera Contraceptive 150 mg/mL intramuscular suspension = 150 mg, Intramuscular, Once, # 1 mL, 0 Refills, Soft Stop, 10/26/18 12:35:18 EDT Start Date: 10/26/18 Status: Orderedlisinopril 5 mg oral tablet 5 mg, 1, tablet, By Mouth, Daily, # 14 tablet, Refills 0, Tot. Refills 0, Maintenance, 01/17/18 15:00:00 EDT, Print Requisition Start Date: 01/17/18 Stop Date: 01/31/18 Status: OrderedMotrin IB = 200 mg, By Mouth, Every 6 hours, 0 Refills, Maintenance, 01/11/18 15:32:12 EDT Start Date: 01/11/18 Status: Ordered Problem List Condition Effective Dates [...]
--- OUTSIDE RECORDS SUMMARY | 2022-05-31 00:23 | XMS_ITS | Continuity of Care Document ---
:1980 Author Organization [facility] Address [address] [place] [address]- Care Team Providers Name Role Phone Viktor BARRIOS, Emma Primary Care Physician En[place] [facility] [place] Date(s): 06/12/19 - 08/18/[address] [address]- [facility] Attending Physician: Not on Staff, Attending MD Referring Physician: Emma Hoang MD Allergies, Adverse Reactions, Alerts Substance Reaction [...]
--- OUTSIDE RECORDS SUMMARY | 2022-05-31 00:23 | XMS_ITS | Continuity of Care Document ---
:1980 Author Organization [facility] Address [address] [place] [address]- Care Team Providers Name Role Phone Viktor BARRIOS, Emma Primary Care Physician Encounter [facility] [place] Date(s): 07/19/19 - 07/29/[address] [address]- [facility] Attending Physician: Jack Hernandez Admitting Physician: Jack Hernandez Referring Physician: Jack Hernandez Allergies, Adverse Reactions, Alerts Substance Reaction Severity [...]
[2022-05-31 00:28] LABS: Magnesium 2.1 mg/dL (1.6-2.6)
[2022-05-31 01:35] LABS: COVID-19 Test Negative (Negative); IDNOW Serial# 16C4AD1C
[2022-05-31] MEDS: LORazepam 1 MG TABLET 2 MG PO (02:01)
[2022-05-31] MEDS: Haloperidol Lactate 5 MG/ML VIAL 10 MG IM (03:50)
[2022-05-31] MEDS: diphenhydrAMINE HCL 50 MG/ML VIAL IM (03:50)
--- NOTE | 2022-05-31 04:44 | PC.NURSE ---
Addendum entered by Genie Starkey RN 05/31/22 05:54: 0550 Left arm restraint removed, pt still asleep and calm. Sitter is at the bedside. Continuing to monitor. Addendum entered by Genie Starkey RN 05/31/22 05:21: 0520 Right arm restraint released, pt is still asleep at this time. Vital signs stable. Original Note: Pt came in to ER seeking detox for alcohol use. Pt was calm and cooperative, emotional, but agreed that she would stay overnight to be evaluated in the morning. Pt stated she as been to [place] for detox previously. Pt was given ativan at 0201 after reporting increased anxiety and trouble sleeping, requesting something to help her relax and sleep. Around 0300, pt began expressing wanting to leave the ER. RN, Charge nurse, and MD spoke to the pt and brought her back to the bed. Pt tried to leave again not long after and, at this point began expressing SI statements. I can't do this anymore They're going to find out what it's like when I'm not around anymore. Dr. Salmeron placed pt under a section 12. Pt attempted to leave again and it was explained that she is under a section 12 and can not leave. Security was called. After some time, pt went back to her bed but would not cooperate with staff to loom changeover operator or move into another bed. Many attempts were had but pt began yelling, crying, hitting her head on the wall. The decision was made by the provider to restrain the pt. MD, RNs, and security were at the bedside to execute a four point restraint with blue velcro/buckle restraints. CSMs were checked and were in tact. Pt began pulling and biting at her restraints, yelling at staff. Haldol and Benadryl were ordered by provider and administered at 0350. Pt continued to kick, pull, and yell for approximately 20-25 minutes before falling asleep. Pt condition remained unchanged for the initial hour of restraints. At 0500, ankle restraints were removed and condition remained stable, pt remained asleep. Will continue to monitor and will release wrist restraints as tolerated.
--- NOTE | 2022-05-31 05:50 | PC.NURSE ---
NINA referral tay rojas
== END 2022-05-31 12:57 | disposition home or self-care (01) ==
PROVIDERS: Emergency Medicine; Emergency Provider Emergency Medicine
DX: F10.220 Alcohol dependence with intoxication, uncomplicated (principal); Y90.8 Blood alcohol level of 240 mg/100 ml or more; R11.2 Nausea with vomiting, unspecified; R45.851 Suicidal ideations; F41.9 Anxiety disorder, unspecified; Z78.1 Physical restraint status; Z20.822 Contact with and (suspected) exposure to COVID-19; Z79.899 Other long term (current) drug therapy
CPT/HCPCS: 36415; 71045; 80053; 82077; 83735; 85025; 87635; 96361; 96372; 96374; 96375; 99283; 99284; 99285; J1200; J2250; J2405; J3411

== ENCOUNTER 2022-05-31 17:50 | Emergency (ER) | payer MEDICAID, SELFPAY ==
--- NOTE | ~2022-05-31 | XR_ITS ---
EXAMINATION: XR CHEST CLINICAL INFORMATION: Wheezing COMPARISON: 04/27/2020 TECHNIQUE: Frontal view of the chest was obtained. FINDINGS: New mild interstitial prominence. No focal consolidation or mass. Normal heart size. No pleural effusion or pneumothorax. XR/XR chest 1V IMPRESSION: New mild interstitial prominence could reflect bronchitis or interstitial pneumonitis.
--- NOTE | 2022-05-31 18:04 | ED_ITS ---
HPI - Alcohol General Chief Complaint: Dyspnea Stated Complaint: UNRESPONSIVE Time Seen by Provider: 05/31/22 17:59 Source: patient and EMS Mode of arrival: EMS Limitations: other (Intoxicated) History of Present Illness HPI narrative: 42-year-old female presents via EMS for unresponsiveness. Patient is responsive to verbal stimulus, states that she has had several alcoholic beverages today at a [employer] party. She did report vomiting after drinking. Does not report any illicit drug use and does not feel as if she were drugged. MD complaint: alcohol intoxication Last drink: Hours (ago) (Within the hour of arrival) Chronic alcohol use: No Previous visits for alcohol intoxication: Yes Associated symptoms: nausea and vomiting Treatments prior to arrival: none Related Data Previous Rx's Medication Instructions Recorded nitrofurantoin 100 mg PO Q12H 7 days #14 caps 09/01/21 monohydrate/macrocrystals 100 mg capsule (Macrobid) tramadol 50 mg tablet 50 mg PO Q6H PRN pain #15 tabs 04/03/22 amoxicillin 875 mg-potassium 1 tab PO Q12H 5 days #10 tabs 05/31/22 clavulanate 125 mg tablet azithromycin 250 mg tablet 250 mg PO DAILY 4 days #4 tabs 05/31/22 Allergies Allergy/AdvReac Type Severity Reaction Status Date / Time No Known Allergies Allergy Verified 08/31/21 20:08 [No Known Allergies*] Review of Systems Review of Systems: Constitutional: No Fever, No Chills ENT/Mouth: No Ear Pain, No Hoarseness, No sore throat Eyes: No Eye Pain, No Swelling, No Redness, No Foreign Body Cardiovascular: No Chest Pain, No SOB Respiratory: No Cough, No Dyspnea Gastrointestinal: No Nausea, No Vomiting, No Diarrhea, No abdominal Pain Genitourinary: No Dysuria, No Hematuria Musculoskeletal: no joint pain, No Myalgias, No Joint Swelling Skin: No Skin lacerations, No rash Neuro: No Weakness, No Numbness, No Paresthesias, No Loss of Consciousness, No Dizziness, No Headache Psych: No Anxiety/Panic, No Depression Heme/Lymph: no easy bruising, no Lymphadenopathy Endocrine: No Polyuria, No Polydipsia Yes all other systems are reviewed and are negative [facility] Past Medical History Attestation statement: The following information was validated with the patient. Source: old records reviewed Medical History Alcohol abuse Surgical History Bariatric surgery status deliv NOS-unsp Social History Social History Alcohol intake: current Alcohol intake frequency: 3 or more drinks per day Patient Tobacco Use Status: Never used Tobacco Use of substances other than those prescribed or required for medical reasons: No Advance Directives: No Advance Directives Information Provided: No Physical Exam ED Vital Signs: Vital Signs - 24 hr 05/31/22 18:09 05/31/22 22:00 Temperature 98.3 F 98.4 F Pulse Rate 84 78 Respiratory Rate 26 H 16 Blood Pressure 153/86 H 163/95 H Pulse Oximetry 97 99 Oxygen Delivery Method Nasal Cannula Room Air BMI result Body Mass Index 30.7 Appearance: Alert. Oriented X3. Intoxicated. Eyes: Pupils equal, round and reactive to light. Sclera nonicteric. ENT: Pharynx normal. Moist mucous membranes. Neck: Normal inspection. Neck supple. CVS: Normal heart rate and rhythm. Pulses normal. Respiratory: No respiratory distress. Expiratory wheezing. Abdomen: Soft and nontender. Skin: Skin warm and dry. Normal skin color. Normal skin turgor. Extremities: No lower extremity edema. Moves all extremities against resistance. Gait not assessed for safety. Neuro: No motor deficit. No sensory deficit. Cranial nerves 2-12 intact. Course Course Course Narrative: 42-year-old female presents via EMS for being found unresponsive at work. Patient is speaking to me at this time, responsive to verbal stimulus. States she drank approximately 5 servings of vodka and then vomited. She does not report any other drug. Does not report suicidal or homicidal ideation. Patient does have some expiratory wheezing, will order chest x-ray. 20:40 chest x-ray indicates pneumonitis versus bronchitis, while I question aspiration based on patient's presentation. 21:30 patient states that she is too tired for ambulation. RN attempted for ambulatory pulse ox. 22:00 patient states to feel better. Plan of care is for Augmentin and azithromycin to cover for aspiration MDM - Alcohol Differential Diagnosis Differential diagnosis: Likely alcohol intoxication Medical Records Attestation: I reviewed the patient's medical records. Imaging Data Chest x-ray: Attestation: I personally reviewed and interpreted this imaging study as follows: Radiologist's impression: EXAMINATION: XR CHEST CLINICAL INFORMATION: Wheezing COMPARISON: 04/27/2020 TECHNIQUE: Frontal view of the chest was obtained. FINDINGS: New mild interstitial prominence. No focal consolidation or mass. Normal heart size. No pleural effusion or pneumothorax. XR/XR chest 1V IMPRESSION: New mild interstitial prominence could reflect bronchitis or interstitial pneumonitis. Discharge Plan Discharge Clinical Impression: Alcoholic intoxication, Vomiting, Aspiration into airway Patient Disposition: Home, Self-Care Instructions: Aspiration Pneumonia (DC), Alcohol Intoxication (ED) Additional Instructions: You were evaluated for alcohol intoxication. Chest increase ray indicates pneumonitis, consistent with possible aspiration. Please take Augmentin 875 mg twice a day for the next 5 days. Take azithromycin 250 mg for the next 4 days. Start this medication on 06/02/2022 because we gave you 1st dose in the emergency department on 05/31/2022. Follow-up with primary care physician. Return to the emergency department for any new, concerning, worsening symptoms. Prescriptions: New azithromycin 250 mg tablet 250 mg PO DAILY 4 Days Qty: 4 0RF Rx Instructions: start on day 2 of therapy amoxicillin-pot clavulanate 875-125 mg tablet 1 tab PO Q12H 5 Days Qty: 10 0RF No Action tramadol 50 mg tablet 50 mg PO Q6H PRN (Reason: pain) Qty: 15 0RF nitrofurantoin monohyd/m-cryst [Macrobid] 100 mg capsule 100 mg PO Q12H 7 Days Qty: 14 0RF Rx Instructions: must administer with a meal/food Stand Alone Forms: Work/School Release
[2022-05-31 18:09] VITALS: BP 148/82; BP 153/86; PULSE 84; RESP 26; TEMP 36.8; O2SAT 95; O2SAT 97; BMI 30.7
[2022-05-31 22:00] VITALS: BP 163/95; PULSE 78; RESP 16; TEMP 36.9; O2SAT 99
[2022-05-31] MEDS: Amoxicillin/Potassium Clav 875 MG TABLET PO (22:32)
[2022-05-31] MEDS: Azithromycin 500 MG TABLET PO (22:32)
--- NOTE | 2022-05-31 22:40 | PC.NURSE ---
Pt aox3. Breahts are even and unlabored with productive cough. Pt o2 sat 98% RA. Abd is soft and nontender. Skin is warm pink and dry. Pt reports unable to walk around as pt is feeling dizzy and shaky. provider aware.
[2022-05-31 23:30] VITALS: BP 168/90; PULSE 78; RESP 21; TEMP 37; O2SAT 95
== END 2022-05-31 23:32 | disposition home or self-care (01) ==
PROVIDERS: Emergency Provider Emergency Medicine Emergency Medical Services
DX: F10.220 Alcohol dependence with intoxication, uncomplicated (principal); Y90.9 Presence of alcohol in blood, level not specified; J69.0 Pneumonitis due to inhalation of food and vomit; R11.2 Nausea with vomiting, unspecified; R40.4 Transient alteration of awareness
CPT/HCPCS: 71045; 99283; 99284

== ENCOUNTER 2022-07-07 20:26 | Emergency (ER) | payer MEDICAID, SELFPAY ==
--- NOTE | ~2022-07-07 | US_ITS ---
EXAMINATION: US PELVIS CLINICAL INFORMATION: Menstrual cup retained in the vagina. Menstrual cup placed 2 weeks ago. Unable to find. Left-sided pelvic pain. History of for sections. COMPARISON: CT abdomen pelvis 04/02/2022. TECHNIQUE: Ultrasound of the pelvis is performed using both transabdominal and transvaginal transducers along with Doppler. Transvaginal imaging is performed due to inadequate visualization transabdominally. FINDINGS: Uterus: Uterus is present in a retroflexed orientation measuring 13.9 cm x 4.4 cm x 6.9 cm. Endometrial echo complex measures 4 mm in width. No endometrial cavity fluid collections identified. No uterine fibroids visualized. Transabdominal images demonstrate a hyperechoic focus with posterior acoustic shadowing in the region of the cervix (image 33). This region measures approximately 1.8 cm in width. The right ovary measures 3.3 cm x 3.0 cm x 2.5 cm for a volume of 13 mm. A single 2.3 cm x 1.7 cm x 1.8 cm rounded hypoechoic cyst is noted within the right ovary along with several subcentimeter anechoic simple cyst. Overall, the above findings are consistent with physiologic cysts. Normal low resistive venous waveforms are noted within the right ovary and spectral Doppler interrogation. No free intraperitoneal fluid collections are noted. The left ovary measures 4.6 cm x 3.5 cm x 4.1 volume of 34 mL. A cyst containing a single thin septum measures 3.3 cm x 2.6 cm x 3.1 cm and is consistent with a normal, physiologic cyst. Low resistive arterial and venous waveforms are noted within the left ovary. US/US pelvic complete IMPRESSION: *Indeterminate 1.8 cm hyperechoic focus with posterior acoustic shadowing noted in the region of the vaginal fornix adjacent to the cervix. This finding could represent partial visualization of a menstrual cup. Of note, sonography has limited sensitivity in the detection of foreign bodies within the vagina. Contemporaneous review of the CT scan of 04/02/2022 demonstrates a menstrual cup in situ. No free intraperitoneal fluid noted within the pelvis.
--- NOTE | ~2022-07-07 | CT_ITS ---
EXAMINATION: CT PELVIS WITHOUT CONTRAST CLINICAL INFORMATION: 42-year-old female undergoing pelvic evaluation. Clinical concern for retained menstrual cup. COMPARISON: CT abdomen and pelvis from 04/02/2022. TECHNIQUE: Noncontrast multidetector CT imaging examination of the pelvis is performed. Axial images and multiplanar reformatted images are reviewed. This CT examination was performed using dose optimization techniques as appropriate, variously including the following: *Automated exposure control *Adjustment of mA and/or kV according to patient size (this includes techniques or standardized protocols for targeted exams where dose is matched to indication/reason for exam; i.e. extremities or head) *Use of iterative reconstruction technique DLP: 362 mGy-cm FINDINGS: The uterus has normal size and contour. The dominant follicles of the right and left ovary measure 1.6 cm and 2.9 cm, respectively. No follow-up imaging is recommended for follicles of this size. The small amount of gas within the vaginal canal conforms to the canal, and there is no evidence of a radiopaque foreign body within the vagina. Urinary bladder is unremarkable. No pelvic free fluid. No iliac or inguinal lymphadenopathy. No dilated bowel loops within the examined [id number]. The appendix is normal. No suspicious bone lesions. Mild osteoarthritis of the sacroiliac joints. Severe facet joint osteoarthritis at L4-L5. Chondrocalcinosis of the pubic symphysis. CT/CT pelvis wo IV con IMPRESSION: * No evidence of a radiopaque foreign body in the vagina. * No pelvic mass, free fluid or lymphadenopathy.
[2022-07-07 21:14] VITALS: BP 131/68; PULSE 104; RESP 18; TEMP 36.4; O2SAT 97; BMI 30.7
[2022-07-07 21:38] LABS: MANUAL DIFF FLAG NO
--- OUTSIDE RECORDS SUMMARY | 2022-07-07 21:39 | XMS_ITS | Continuity of Care Document ---
:1980 Author Organization [facility] Address [address] [place] [id number]- Care Team Providers Name Role Phone Emma Hoang MD Primary Care Physician Encounter [facility] Date(s): 07/02/22 - 07/02/[address] [address]- Discharge Disposition: A-D/C Walkout Attending Physician: Not [...] 04/30/20 11:14:00 EDT, Route to Pharmacy Electronically, [facility], 164, cm, 04/29/20 3:39:00 EDT, Height, 81, kg, 04/27/20 10:33:00 EDT,... Start Date: 04/30/20 Status: Orderedlisinopril 5 mg oral tablet 5 mg, 1, tablet, By Mouth, Daily, # 14 tablet, Refills 0, Tot. Refills 0, Maintenance, 01/17/18 15:00:00 EDT, Print Requisition Start Date: 01/17/18 Stop Date: 01/31/18 Status: Ordered Problem List Condition Confirmation Course Effective Dates Status Health Stat us Informant No pap smears in Confirmed Active CIS Sleep related Confirmed Active hypoxia Morbid obesity with Confirmed Active BMI of 40.0-44.9, adult AMA (advanced Confirmed Active maternal age) multigravida 35+ Obese class I Confirmed Active DELROY (obstructive Confirmed Active sleep apnea) Current tobacco use Confirmed Active Vital Signs Most recent to oldest [Reference Range]: 1 Oxygen Saturation [94-100 %] 98 % (07/02/22 4:57 PM) Pulse Rate [55-90 bpm] 78 bpm (07/02/22 4:57 PM) Mode of Delivery (Oxygen) Room air (07/02/22 4:57 PM) Social History Social History Type Response Smoking Status Current some day smoker; Typ e: Cigarettes; Tobacco use times per day: 10; Number of years: 10; entered on: 01/11/18 Sex Patient Care team information Care Team PersonnelName: Emma Hoang MD Position: [facility] Outreach Member Role: PCP Address: Address: [address] [place] [id number]- Care Team Related PersonsName: SHAKA JACOBSON Address: home [address] [place] [address] Name: RADHA MUSTAFA Address: home [address] [place] [address]
--- OUTSIDE RECORDS SUMMARY | 2022-07-07 21:39 | XMS_ITS | Continuity of Care Document ---
:1980 Author Organization [facility] Address [address] [place] [id number]- Care Team Providers Name Role Phone Emma Hoang MD Primary Care Physician Encounter [facility] Date(s): 07/02/22 - 07/02/[address] [address]- Discharge Disposition: A-D/C Walkout Attending Physician: Not [...] 04/30/20 11:14:00 EDT, Route to Pharmacy Electronically, [facility], 164, cm, 04/29/20 3:39:00 EDT, [...] Most recent to oldest [Reference Range]: 1 2 Height 165 cm (07/02/22 10:27 AM) Weight 85.2 kg (07/02/22 10:27 AM) Oxygen Saturation [94-100 %] 100 % 99 % (07/02/22 10:27 AM) (07/02/22 10:09 AM) Pulse Rate [55-90 bpm] 75 bpm 77 bpm (07/02/22 10:27 AM) (07/02/22 10:09 AM) Body Mass Index [18.5-24.99 kg/m2] 31.29 kg/m2 *>HHI* (07/02/22 10:27 AM) Blood Pressure [90-138/55-84 mm Hg] 180/90 mm Hg *H* (07/02/22 10:27 AM) Respiratory Rate [16-30 br/min] 18 br/min (07/02/22 10:27 AM) Temperature [96.8-100.4 DegF] 98.1 DegF (07/02/22 10:27 AM) Mode of Delivery (Oxygen) Room air Room air (07/02/22 10:27 AM) (07/02/22 10:09 AM) Blood pressure sites Arm, right (07/02/22 10:27 AM) Temperature Route Oral (07/02/22 10:27 AM) Dry Weight 85.2 kg (07/02/22 10:27 AM) Weight Obtained Via Standing scale (07/02/22 10:27 AM) Dry Weight Obtained Via Standing scale (07/02/22 10:27 AM) Social History Social History Type Response Smoking Status Current some day smoker; Typ e: Cigarettes; Tobacco use times per day: 10; Number of years: 10; entered on: 01/11/18 Sex Patient Care team information Care Team PersonnelName: Emma Hoang MD Position: [facility] Outreach Member Role: PCP Address: Address: [address] [place] [id number]- Care Team Related PersonsName: SHAKA JACOBSON Address: home [address] [place] [address] Name: RADHA MUSTAFA Address: [address] [place] [address]
[2022-07-07 21:40] LABS: Basophils Percent Auto 0.6 % (0-2); Eosinophils Percent Auto 0.9 % (0-4); Hematocrit 37.3 % (37.0-47.0); Imm Gran Abs Auto 0.01 X10*3/uL (0.00-0.03); Imm Gran Pct Auto 0.2 % (0.0-0.4); Lymphocytes Absolute Auto 1.8 X10*3/uL (1.2-4.9); Lymphocytes Percent Auto 39.3 % (20-40); Mean Corpuscular HGB Conc 34.9 g/dl (31.0-35.0); Mean Corpuscular Hemoglobin 32.7 pg (27.0-33.0); Mean Platelet Volume 10.3 fL (9.4-12.3); Monocytes Absolute Auto 0.4 X10*3/uL (0.1-1.2); Monocytes Percent Auto 8.6 % (2-11); Neutrophils Absolute Auto 2.3 x10*3/uL (2.0-8.3); Neutrophils Percent Auto 50.4 % (45-73); Platelet Count 152 X10*3/uL (160-400); Red Blood Count 3.97 X10*6/uL (4.20-5.50); White Blood Count 4.6 X10*3/uL (4.8-10.8)
[2022-07-07 22:03] LABS: Alanine Aminotransferase 38 U/L (0-31); Albumin Level 3.9 g/dL (3.5-5.0); Alkaline Phosphatase 86 U/L (39-117); Anion Gap 13 (12-20); Aspartate Amino Transferase 57 U/L (5-31); Bilirubin Total 0.7 mg/dL (0.0-1.0); Blood Urea Nitrogen 12 mg/dL (9-16); Calcium 8.5 mg/dL (8.4-10.2); Carbon Dioxide 24 mmol/L (22-29); Chloride 111 mmol/L (96-108); Estimated Glomerular Filt Rate > 60; Glucose Random 93 mg/dL (60-115); Lipase 58 U/L (8-78); Potassium 3.8 mmol/L (3.3-5.1); Sodium 144 mmol/L (135-145); Total Protein 6.8 g/dL (6.5-8.0)
--- NOTE | 2022-07-07 22:48 | ED.ABDPAIN ---
HPI - Abdominal Pain General Chief Complaint: Abdominal Pain Stated Complaint: pain from menstrual cup Time Seen by Provider: 07/07/22 22:40 Source: patient Mode of arrival: ambulatory Limitations: no limitations History of Present Illness HPI narrative: 42-year-old female complaining of pelvic pain. Patient used menstrual cup 2 weeks ago was not able to remove it and the cup was retained in her vagina now patient is complaining of pelvic pain. No fever, no chills. Related Data Previous Rx's Medication Instructions Recorded nitrofurantoin 100 mg PO Q12H 7 days #14 caps 09/01/21 monohydrate/macrocrystals 100 mg capsule (Macrobid) tramadol 50 mg tablet 50 mg PO Q6H PRN pain #15 tabs 04/03/22 amoxicillin 875 mg-potassium 1 tab PO Q12H 5 days #10 tabs 05/31/22 clavulanate 125 mg tablet azithromycin 250 mg tablet 250 mg PO DAILY 4 days #4 tabs 05/31/22 Allergies Allergy/AdvReac Type Severity Reaction Status Date / Time No Known Allergies Allergy Verified 07/07/22 21:17 [No Known Allergies*] Review of Systems Review of Systems All other systems are reviewed and are negative Constitutional: Reports as per HPI and Reports no additional constitutional complaints Eyes: Reports as per HPI and Reports no additional eye complaints Reports system reviewed and no additional complaints, except as documented Cardiovascular: Reports as per HPI and Reports no additional cardiovascular complaints Respiratory: Reports as per HPI and Reports no additional respiratory complaints Gastrointestinal: Reports as per HPI and Reports no additional gastrointestinal complaints Genitourinary: Reports no additional female genitourinary complaints Musculoskeletal: Reports no additional musculoskeletal complaints Skin/Breast: Reports system reviewed and no additional complaints, except as docu Psychiatric: Reports no additional psychiatric complaints Endocrine: Reports no additional endocrine complaints Hematologic/Lymphatic: Reports no additional hematologic/lymphatic complaints Allergic/Immunologic: Reports no additional allergic/immunologic complaints Reports system reviewed and no additional complaints, except as documented and Reports Abnormal speech present [facility] Past Medical History Medical History Alcohol abuse Surgical History Bariatric surgery status deliv NOS-unsp Social History Social History Alcohol intake: current Alcohol intake frequency: holidays/special occasions only Patient Tobacco Use Status: Never used Tobacco Smoked in Last 30 Days: Yes Use of substances other than those prescribed or required for medical reasons: No Substance Use Type: Marijuana Advance Directives: No Advance Directives Information Provided: No Patient : No Physical Exam ED Vital Signs: Vital Signs - 24 hr 07/07/22 21:14 07/08/22 00:00 07/08/22 02:00 Temperature 97.6 F 98.0 F 98.2 F Pulse Rate 104 H 73 76 Respiratory Rate 18 16 16 Blood Pressure 131/68 131/84 130/82 Pulse Oximetry 97 98 96 Oxygen Delivery Method Room Air Room Air Room Air 07/08/22 04:00 Temperature 98.0 F Pulse Rate 70 Respiratory Rate 16 Blood Pressure 143/74 H Pulse Oximetry 97 Oxygen Delivery Method Room Air BMI result Body Mass Index 30.7 Vital signs have been reviewed as appeared to be correct. Blood pressure normal. Heart rate normal. Respiration rate normal. Temperature normal. Oxygen saturation normal. Appearance: Alert. Oriented X3. No acute distress. Head: Normal external exam. Normocephalic. Atraumatic. No Sargent signs noted. No raccoon eyes noted Eyes: PERRLA. EOMI. Conjunctiva and sclera normal. Eyelids normal. ENT: TM's Normal. Pharynx normal. Uvula midline. Moist mucous membranes. No trismus noted. No drooling noted. No muffled voice noted. Neck: Normal inspection. Neck supple. FROM. No adenopathy. Thyroid Normal. No meningeal signs. No neck mass noted. CVS: Normal heart rate and rhythm. Heart sound normal. No murmurs noted. Pulses normal throughout. Respiratory: No respiratory distress. Painless inspiration. Breath sounds normal. No wheezes/rales/rhonchi noted. Chest nontender. No accessory muscle usage noted or decreased air movement noted. Abdomen: Soft and nontender. Bowel sounds normal in all 4 quadrants. No distention noted. No organomegaly noted. No visible injury noted. Pelvic exam: No discharge, normal external genitalia, no CMT, unable to visualize cervix due to different variant anatomy. Back: No CVA tenderness. Full range of motion noted. Skin: Skin warm and dry. Normal skin color. Normal skin turgor. No rashes/lesions/lacerations noted. Extremities: No lower extremity edema. Extremities exhibit normal range of motion. Extremities nontender. Neuro: Oriented X 3. Cranial nerve exam: II-XII are grossly intact No motor deficit. No sensory deficit. Reflexes normal. Course Course Course Narrative: 42-year-old female claim that menstrual cup was stuck in her vagina for 2 weeks, presented with pelvic pain, unable to visualize the cervix due to unusual variant anatomy, the case was discussed with Dr. Perez who will, examined the patient at 07:00. Medical Decision Making Medical Decision Making Differential Diagnoses: Differential diagnosis Differential Diagnosis: The differential diagnosis associated with the patient?s presentation includes: Pelvic pain, ovarian cyst, vaginal foreign body. Lab Attestation: I reviewed the patient's lab results. Medications Administered Discontinued Medications Generic Name Dose Route Start Last Admin Trade Name Freq PRN Reason Stop Dose Admin Acetaminophen 650 mg 07/08/22 01:04 07/08/22 01:15 Acetaminophen 325 Mg Tablet PO 07/08/22 01:05 650 mg ONCE ONE Administration Discharge Plan Discharge Clinical Impression: Pelvic pain, Foreign body in vagina Patient Disposition: Home, Self-Care Instructions: Pelvic Pain (ED) Prescriptions: No Action tramadol 50 mg tablet 50 mg PO Q6H PRN (Reason: pain) Qty: 15 0RF nitrofurantoin monohyd/m-cryst [Macrobid] 100 mg capsule 100 mg PO Q12H 7 Days Qty: 14 0RF Rx Instructions: must administer with a meal/food azithromycin 250 mg tablet 250 mg PO DAILY 4 Days Qty: 4 0RF Rx Instructions: start on day 2 of therapy amoxicillin-pot clavulanate 875-125 mg tablet 1 tab PO Q12H 5 Days Qty: 10 0RF Referrals: Emma Hoang MD [Primary Care Provider] -
[2022-07-08] VITALS: BP 131/84; PULSE 73; RESP 16; TEMP 36.7; O2SAT 98
[2022-07-08] MEDS: Acetaminophen 325 MG TABLET 650 MG PO ×2 (01:15→06:13)
[2022-07-08 02:00] VITALS: BP 130/82; PULSE 76; RESP 16; TEMP 36.8; O2SAT 96
[2022-07-08 04:00] VITALS: BP 143/74; PULSE 70; RESP 16; TEMP 36.7; O2SAT 97
[2022-07-08 06:00] VITALS: BP 163/87; PULSE 59; RESP 16; TEMP 36.6; O2SAT 96
--- NOTE | 2022-07-08 08:00 | PC.NURSE ---
dr Perez at bedside for a pelvic exam,
--- NOTE | 2022-07-08 08:10 | PM.GYNCN ---
QUALITY ASSURANCE LEAD - CN: HPI Data of Consult Consult date: 07/08/22 Primary Care Provider: Emma Hoang MD Consult Narrative Narrative: Late entry note I was consulted on Estrella Burt this a.m. who is a 42 year old female presented emergency room complaining of pelvic pain.? The patient gives a history of using menstrual cup 2 weeks ago but she was not able to remove it and according to her, the cup was retained in her vagina, No fever, no chills no abnormal uterine bleeding or vaginal discharge. No Nausea or vomiting or any other GI or symptom cc:: CC: FISCAL ACCOUNTANT - Review of Systems Review of Systems ROS Unobtainable: All systems reviewed & are unremarkable except as noted in HPI and below Cardiovascular: Denies Palpatations, Loss of consciousness or Chest pain Respiratory: Denies Cough, Wheezing or Shortness of breath Musculoskeletal: Denies Low back pain Gastrointestinal: Denies Heartburn, Constipation, Diarrhea, Nausea or Vomiting Genitourinary: Denies Pain with urination, Burning with urination or Urinary frequency Neurological: Denies Migranes Psychological: Denies Depression OB PMFSH Past Medical History Medical History Alcohol abuse Surgical History Surgical History Bariatric surgery status deliv NOS-unsp Social History Social History Alcohol intake: current Alcohol intake frequency: holidays/special occasions only Patient Tobacco Use Status: Never used Tobacco Smoked in Last 30 Days: Yes Use of substances other than those prescribed or required for medical reasons: No Substance Use Type: Marijuana Advance Directives: No Advance Directives Information Provided: No Patient : No Meds Allergies Allergy/AdvReac Type Severity Reaction Status Date / Time No Known Allergies Allergy Verified 07/07/22 21:17 [No Known Allergies*] QUALITY ASSURANCE LEAD Physical Exam Vitals Vital signs: Temp Pulse Resp BP Pulse Ox O2 Del Method 97.9 F 59 16 163/87 H 96 07/08/22 06:00 07/08/22 06:00 07/08/22 06:00 07/08/22 06:00 07/08/22 06:00 07/08/22 06:00 BMI result Body Mass Index 30.7 Constitutional General Appearance: Healthy appearing, Well-nourished and Well-developed Psychiatric Mood and Affect: active and alert, normal mood and normal affect Skin Appearance: No rashes and No lesions Lungs Respiratory Effort: No intercostal retractions Auscultation: Clear to auscultation Cardiovascular Auscultation: RRR Abdomen Auscultation/Inspection/Palpation: Normal bowel sounds, Soft, Non-distended and No tenderness Female Genitalia (Pelvic) Bladder/Urethra: Normal meatus Vulva: No lesions Vagina: Nontender, Normal discharge and No lesions Cervix: Grossly normal and No cervical motion tenderness Uterus: Normal size and Nontender Adnexa/Parametria: Adnexal Tenderness: None, Adnexal Mass: None, Parametrial Tenderness: None and Parametrial Mass: None Additional Comments: No evidence of menstrual cup in the vagina QUALITY ASSURANCE LEAD - Results Labs CBC & Chem 7: 07/07/22 21:34 07/07/22 21:34 Labs: Short CBC 07/07/22 Range/Units 21:34 WBC 4.6 L (4.8-10.8) X10*3/uL Hgb 13.0 (12.0-16.0) g/dl Hct 37.3 (37.0-47.0) % Plt Count 152 L D (160-400) X10*3/uL BMP 07/07/22 21:34 Sodium 144 Potassium 3.8 Chloride 111 H Carbon Dioxide 24 BUN 12 Creatinine 0.74 Calcium 8.5 Liver Function 07/07/22 Range/Units 21:34 Total Bilirubin 0.7 (0.0-1.0) mg/dL AST 57 H (5-31) U/L ALT 38 H (0-31) U/L Alkaline Phosphatase 86 (39-117) U/L Albumin 3.9 (3.5-5.0) g/dL Imaging CT scan - pelvis: Radiologist's impression: ITS Impressions Pelvis Ultrasound 07/08/22 00:35 IMPRESSION: *Indeterminate 1.8 cm hyperechoic focus with posterior acoustic shadowing noted in the region of the vaginal fornix adjacent to the cervix. This finding could represent partial visualization of a menstrual cup. Of note, sonography has limited sensitivity in the detection of foreign bodies within the vagina. Contemporaneous review of the CT scan of 04/02/2022 demonstrates a menstrual cup in situ. No free intraperitoneal fluid noted within the pelvis. Pelvis CT 07/08/22 09:10 IMPRESSION: * No evidence of a radiopaque foreign body in the vagina. * No pelvic mass, free fluid or lymphadenopathy. US - abdomen: Radiologist's impression: ITS Impressions Pelvis Ultrasound 07/08/22 00:35 IMPRESSION: *Indeterminate 1.8 cm hyperechoic focus with posterior acoustic shadowing noted in the region of the vaginal fornix adjacent to the cervix. This finding could represent partial visualization of a menstrual cup. Of note, sonography has limited sensitivity in the detection of foreign bodies within the vagina. Contemporaneous review of the CT scan of 04/02/2022 demonstrates a menstrual cup in situ. No free intraperitoneal fluid noted within the pelvis. Pelvis CT 07/08/22 09:10 IMPRESSION: * No evidence of a radiopaque foreign body in the vagina. * No pelvic mass, free fluid or lymphadenopathy. Assessment and Plan (1) Pelvic pain: Status: Acute GC and Chlamydia, with Trichomonas taken. Discussed with the patient the findings on pelvic exam, showing no evidence of any menstrual cup, I recommended to the ER physician to proceed with a CT scan to confirm the absence of any foreign body in the vagina. Discussed with the patient her normal pelvic exam showing no cervical motion tenderness , no adnexal or uterine tenderness , the patient was reassured. If CT scan does not show any foreign body in the vagina, I recommend to discharge the patient home to follow-up in the office , instructions given to the patient to call in case of temperature above 100.4, persistence or worsening of pelvic pain, heavy vaginal bleeding, nausea or vomiting. All questions answered, the patient verbalized understanding and agreed with the plan.
--- NOTE | 2022-07-08 10:39 | PC.NURSE ---
pt not found at bedside, but the pt did leave a note stating she had a emergency with her son at school and had to leave
[2022-07-08 11:13] LABS: CT PCR NOT DETECTED (Not Detect.); NG PCR NOT DETECTED (Not Detect.)
== END 2022-07-08 10:40 | disposition home or self-care (01) ==
PROVIDERS: Emergency Medicine; Obstetrics & Gynecology; Emergency Provider Emergency Medicine Emergency Medical Services; PCP Internal Medicine
DX: T83.32XA Displacement of intrauterine contraceptive device, initial encounter (principal); R10.2 Pelvic and perineal pain; Y76.2 Prosthetic and other implants, materials and accessory obstetric and gynecological devices associated with adverse incidents; Y92.9 Unspecified place or not applicable; Z79.899 Other long term (current) drug therapy; Z20.2 Contact with and (suspected) exposure to infections with a predominantly sexual mode of transmission
CPT/HCPCS: 36415; 72192; 76856; 80053; 83605; 83690; 85025; 87491; 87591; 99284; 99285

== ENCOUNTER 2023-01-29 23:47 | Emergency (ER) | payer MEDICAID, SELFPAY ==
[2023-01-30 00:02] VITALS: BMI 30.9
--- NOTE | 2023-01-30 00:02 | ED.ALCOHOL ---
HPI - Alcohol General Stated Complaint: ETOH Time Seen by Provider: 01/29/23 23:55 Source: patient and EMS Mode of arrival: EMS History of Present Illness HPI narrative: 42-year-old female who is brought in by EMS for intoxication, patient does not wish to be here. Related Data Previous Rx's Medication Instructions Recorded nitrofurantoin 100 mg PO Q12H 7 days #14 caps 09/01/21 monohydrate/macrocrystals 100 mg capsule (Macrobid) tramadol 50 mg tablet 50 mg PO Q6H PRN pain #15 tabs 04/03/22 amoxicillin 875 mg-potassium 1 tab PO Q12H 5 days #10 tabs 05/31/22 clavulanate 125 mg tablet azithromycin 250 mg tablet 250 mg PO DAILY 4 days #4 tabs 05/31/22 Allergies Allergy/AdvReac Type Severity Reaction Status Date / Time No Known Allergies Allergy Verified 07/07/22 21:17 [No Known Allergies*] Review of Systems Review of Systems: Pertinent positives and negatives as stated in HPI PMFSH Past Medical History Source: nursing notes reviewed Medical History Alcohol abuse Surgical History Bariatric surgery status deliv NOS-unsp Social History Social History Alcohol intake: current Alcohol intake frequency: holidays/special occasions only Patient Tobacco Use Status: Never used Tobacco Substance Use Type: Marijuana Physical Exam ED Vital Signs: VITAL SIGNS: Reviewed. GENERAL: Well developed, well nourished, in no acute distress. HEAD: Normocephalic/atraumatic EYES: PERRLA, EOMI LUNGS: Normal breath sounds. CARDIOVASCULAR: Regular rate and rhythm without noted murmurs ABDOMEN: Soft, non-tender, non-distended with bowel sounds. NEUROLOGIC: Alert and oriented x 3. Strength and sensation to light touch were grossly intact x 4. Medical Decision Making Medical Decision Making MDM Narrative: 42-year-old female who is brought in by EMS for alcohol intoxication due to request by [place] police department. Patient's father is in the waiting room and she has a safe ride home. She is discharged. Discharge Plan Discharge Clinical Impression: Alcohol intoxication Patient Disposition: Home, Self-Care Instructions: Alcohol Intoxication (ED) Additional Instructions: Return to the ER for any worsening symptoms. Prescriptions: No Action tramadol 50 mg tablet 50 mg PO Q6H PRN (Reason: pain) Qty: 15 0RF nitrofurantoin monohyd/m-cryst [Macrobid] 100 mg capsule 100 mg PO Q12H 7 Days Qty: 14 0RF Rx Instructions: must administer with a meal/food azithromycin 250 mg tablet 250 mg PO DAILY 4 Days Qty: 4 0RF Rx Instructions: start on day 2 of therapy amoxicillin-pot clavulanate 875-125 mg tablet 1 tab PO Q12H 5 Days Qty: 10 0RF
== END 2023-01-30 00:12 | disposition home or self-care (01) ==
PROVIDERS: Emergency Provider Student in an Organized Health Care Education/Training Program
DX: F10.120 Alcohol abuse with intoxication, uncomplicated (principal); Y90.9 Presence of alcohol in blood, level not specified; F12.90 Cannabis use, unspecified, uncomplicated
CPT/HCPCS: 99282

== ENCOUNTER 2023-07-13 10:09 | Outpatient (REF) | payer MEDICAID, SELFPAY ==
[2023-07-13 14:49] LABS: Hematocrit 37.6 % (37.0-47.0); Hemoglobin 12.1 g/dl (12.0-16.0); Mean Corpuscular HGB Conc 32.2 g/dl (31.0-35.0); Mean Corpuscular Hemoglobin 27.6 pg (27.0-33.0); Mean Corpuscular Volume 85.8 fL (80.0-98.0); Mean Platelet Volume 11.2 fL (9.4-12.3); Platelet Count 191 X10*3/uL (160-400); Red Blood Count 4.38 X10*6/uL (4.20-5.50); Red Cell Distribution Width 14.4 % (11.0-16.0); White Blood Count 4.5 X10*3/uL (4.8-10.8)
[2023-07-13 15:29] LABS: Alanine Aminotransferase 12 U/L (0-31); Albumin Level 3.9 g/dL (3.5-5.0); Alkaline Phosphatase 61 U/L (39-117); Anion Gap 12 (12-20); Aspartate Amino Transferase 16 U/L (5-31); Bilirubin Total 0.7 mg/dL (0.0-1.0); Blood Urea Nitrogen 17 mg/dL (9-16); Calcium 9.1 mg/dL (8.4-10.2); Carbon Dioxide 25 mmol/L (22-29); Chloride 107 mmol/L (96-108); Cholesterol 139 mg/dL (<200); Estimated Glomerular Filt Rate > 60; Glucose Random 79 mg/dL (60-115); HDL Cholesterol 64 mg/dL (>40); LDL Cholesterol Calculated 68 mg/dL (<100); Potassium 4.5 mmol/L (3.3-5.1); Sodium 139 mmol/L (135-145); TSH reflex Free T4 1.73 uIU/mL (0.32-4.0); Total Protein 7.1 g/dL (6.5-8.0); Triglycerides 39 mg/dL (<150)
== END 2023-07-13 10:10 | disposition home or self-care (01) ==
LOC: HO.CHCLDS 10:09
PROVIDERS: Visit Provider Internal Medicine
DX: I10 Essential (primary) hypertension (principal)
CPT/HCPCS: 36415; 80053; 80061; 84443; 85027

== ENCOUNTER 2024-03-07 14:11 | Outpatient (REF) | payer MEDICAID, SELFPAY ==
[2024-03-09 13:08] LABS: HPV mRNA E6/E7 Not Detected (Not Detected)
== END 2024-03-07 14:12 | disposition home or self-care (01) ==
LOC: HO.CHCLNP 14:11
PROVIDERS: Visit Provider Family Medicine
DX: Z12.4 Encounter for screening for malignant neoplasm of cervix (principal)
CPT/HCPCS: 36415; 87624; 88175

== ENCOUNTER 2025-01-30 17:58 | Outpatient (REF) | payer MEDICAID, SELFPAY ==
--- OUTSIDE RECORDS SUMMARY | 2025-01-30 18:00 | XMS_ITS | Encounter Summary ---
Author Organization [employer] Address [address] [facility] 7t [place] [address] Care Team Providers Care Sociology Research Assistant Name Role Phone Emma Hoang MD Primary Care Provider [phone]- [phone] Reason for Visit * Reason Onset Date Comments medication conflict 02/23/2024 Encounter Details Date Type Department Care Team ([facility] st Contact Info) Description 02/23/2024 Telephone [facility] CHC ADULT DENTAL [address] [place], [place] [phone] Brijesh Gordon, DMD [address] [place] [address] medication conflict Social History Tobacco Use Types Packs/Day Years Used Date Smoking Tobacco: Every Day Cigarettes 0.3 34.5 Started: 08/02/1990 Smokeless Tobacco: Never Alcohol Use Standard Drinks/Week Comments Yes 5 (1 standard drink = 0.6 oz pure alcohol) trying currently to decrease her drinking. Alcohol Answer Date Recorded How often do you have a drink containing alcohol ? 1 11/09/2022 How many drinks containing a lcohol do you have on a typical day when you are drinking? 0 11/09/2022 How often do you have six or more drinks on one occasion? 1 11/09/2022 Depression Answer Date Recorded Patient Health Questionnaire-9 Score 1 07/13/2023 Patient Health Questionnaire-9 Score 1 07/13/2023 Last PHQ-9: Questionnaire Data Not on file 1 09/13/2022 Housing Stability Answer Date Recorded What is your housing situation today? I have housing today, but I am worried about losing housing in the future 02/22/[address] you li ve. Do you have problems with any of the following? None of the above 02/22/2024 Food Insecurity Answer Date Recorded Within the past 12 months, y ou worried that your food would run out before you got money to buy more: Never True 02/22/2024 Within the past 12 months,th e food you bought just didn't last and you didn't have enough money to get more: Never True Transportation Answer Date Recorded In the past 12 months, has l ack of transportation kept you from medical appts, meetings, work or from getting things needed for daily living? No 02/22/2024 Utilities Answer Date Recorded In the past 12 months, has t he electric, gas, oil or water company threatened to shut off services in your home? No 02/22/2024 Depression Answer Date Recorded Patient Health Questionnaire-2 Score 0 07/13/2023 Comments Unknown Sex and Gender Information Value Date Recorded Sex Assigned at Female 06/01/2022 10:22 AM EDT Legal Sex Female 10:22 AM EDT Gender Identity Female 06/01/2022 10:22 AM EDT Sexual Orientation Straight 06/01/2022 10 :22 AM EDT documented as of this encounter Miscellaneous Notes * Telephone Encounter - Gabrielle Burt - 02/23/2024 1:16 PM EDT Guillermina from [facility] calling to verify oxycodone script. It is bumping up again the vivitrol injection and another acetominophen that patient has scripted as well . Looking for verification prior to contacting insurance. Reach out to pharmacy [phone] Guillermina GAY documented in this encounter Plan of Treatment Not on file documented as of this encounter Visit Diagnoses Not on filedocumented in this encounter Additional Health Concerns Assessment Noted Time PHQ-9 Depression Total Score: 1 07/13/20 23 9:41 AM EST documented as of this encounter Care Teams Sociology Research Assistant Relationship Specialty Start Date End Date Emma Hoang MD [address] [place] [address] PCP - General Internal Medicine 05/26/12 documented as of this encounter
--- OUTSIDE RECORDS SUMMARY | 2025-01-30 18:00 | XMS_ITS | Patient Health Record ---
Author Organization [facility] Address [address] [place], [place] [id number] Care Team Providers Care Farm Equipment Maintenance Supervisor Name Role Phone NO, PCP Primary Care Provider [phone] [facility] Unavailable [phone] Reason For Referral No Information Plan Of Treatment No Information Insurance Providers Payer Name Payer Address Payer Phone Subscriber Number Group Number Insured Name Patient Relationship to Insured Coverage Start Date Coverage End Date [place] Medicaid Standard [address] [place] [address] [id number] Estrella Burt Self - patient is the insured 4
[2025-01-31 12:02] LABS: CT PCR Urine NOT DETECTED (Not Detect.); NG PCR Urine NOT DETECTED (Not Detect.)
== END 2025-01-30 17:59 | disposition home or self-care (01) ==
LOC: HO.CHCLNP 17:58
PROVIDERS: Visit Provider Family Medicine
DX: N93.9 Abnormal uterine and vaginal bleeding, unspecified (principal)
CPT/HCPCS: 36415; 87491; 87591

== ENCOUNTER → 2025-06-25 16:00 | Outpatient (BNV) | payer SELFPAY | PROVIDERS: PCP Family Medicine; Visit Provider Internal Medicine | DX: Z12.31 Encounter for screening mammogram for malignant neoplasm of breast (principal) | CPT/HCPCS: 77063; 77067 ==

== ENCOUNTER 2025-06-25 16:14 | Outpatient (REF) | payer SELFPAY ==
--- NOTE | ~2025-06-25 | MM_ITS ---
EXAMINATION: MM SCREENING DIGITAL BREAST TOMOSYNTHESIS, BILATERAL CLINICAL INFORMATION: Screening. Asymptomatic. COMPARISON: Mammography: Baseline. TECHNIQUE: Digital breast mammography with tomosynthesis is performed in both the craniocaudal and mediolateral oblique views along with computer-aided detection (CAD). FINDINGS: There are scattered areas of fibroglandular density. Left breast piercing upper outer breast. There are no significant masses, abnormal calcifications, or other abnormalities. MM/MM tomosynthesis screening BI IMPRESSION: No mammographic evidence of malignancy. ASSESSMENT: BI-RADS Category 2: Benign RECOMMENDATION: Routine annual mammography screening. 1 year F/U This examination should not preclude the clinical evaluation of a suspicious palpable abnormality. This patient's information was entered into a reminder system with a target due date for their next mammogram. Electronically signed by: Ailyn Mckeon DO 06/26/2025 03:38 PM SATINDER
--- OUTSIDE RECORDS SUMMARY | 2025-06-25 20:23 | XMS_ITS | Encounter Summary ---
Author Organization [employer] Address [address] 7[address] [place] [address] Care Team Providers Care Game Artist Name Role Phone Emma Hoang MD Primary Care Provider [phone]- [phone] Encounter Details Date Type Department Care Team ([facility] st Contact Info) Description 01/17/2025 Abstract [facility] CHC MED & PEDS [address] [place], [place] [phone] Clay Lutz DC Social History Tobacco Use Types Packs/Day Years Used Date Smoking Tobacco: Every Day Cigarettes 0.3 34.9 Started: 08/02/1990 Smokeless Tobacco: Never Alcohol Use [...] Answer Date Recorded Patient Health Questionnaire-9 Score 0 09/28/2024 Patient Health Questionnaire-9 Score 0 09/28/2024 Last PHQ-9: Questionnaire Data Not on file 0 09/28/2024 Housing Stability Answer Date Recorded What is [...] Date Recorded Patient Health Questionnaire-2 Score 0 09/28/2024 Internet Access Answer Date Recorded Internet Access Q1 Yes 04/03/2024 Internet Access Q2 Not on file 04/03/2024 Comments Unknown Sex and Gender Information Value Date Recorded Sex Assigned at Female 06/01/2022 10:22 AM EDT Legal Sex Female 10:22 AM EDT Gender Identity Female 06/01/2022 10:22 AM EDT Sexual Orientation Straight 06/01/2022 10 :22 AM EDT documented as of this encounter Plan of Treatment Not on file documented as of this encounter Procedures Procedure Name Priority Date/Time Associated Diagnosis Comments PAP SMEAR Routine 03/07/2024 documented in this encounter Results * Pap Smear (03/07/2024) Pap Smear 1. NILM 1. NILM Swab 03/07/2024 Historical Provider LAB CYTOLOGY ORDERABLES F inal Result documented in this encounter Visit Diagnoses Not on filedocumented in this encounter Additional Health Concerns Assessment Noted Time PHQ-9 Depression Total Score: 0 09/28/19 25 9:55 AM EST documented as of this encounter Care Teams Game Artist Relationship Specialty Start Date End Date Emma Hoang MD [address] [place] [address] PCP - General Internal Medicine 05/26/12 documented as of this encounter
--- OUTSIDE RECORDS SUMMARY | 2025-06-25 20:23 | XMS_ITS | Encounter Summary ---
Author Organization [employer] Address [address] [place] [address] Care Team Providers Care Broadcast Operations Manager Name Role Phone Emma Hoang MD Primary Care Provider [phone]- [phone] Encounter Details Date Type Department Care Team ([facility] st Contact Info) Description 01/17/2025 Abstract [facility] CHC MED & PEDS [address] [place], [place] [phone] Tana Tuttle MD [address] [place] [address] Social History Tobacco Use Types Packs/Day Years [...] documented as of this encounter Care Teams Broadcast Operations Manager Relationship Specialty Start Date End Date Emma Hoang MD [address] [place] [address] PCP - General Internal Medicine 05/26/12 documented as of this encounter
--- OUTSIDE RECORDS SUMMARY | 2025-06-25 20:23 | XMS_ITS | Encounter Summary ---
Author Organization [employer] Address [address] [facility] [address] [place] [address] Care Team Providers Care Industrial Welder Name Role Phone Emma Hoang MD Primary Care Provider [phone]- [phone] Reason for Visit * Reason Onset Date Comments Paperwork/Forms 10/22/2023 Encounter Details Date Type Department Care Team ([facility] st Contact Info) Description 10/22/2023 Telephone [facility] CHC MED & PEDS [address] [place] [address] Emma Hoang MD [address] [place] [address] Paperwork/Forms Social History Tobacco Use Types Packs/Day Years [...] What is your housing situation today? I do not have housing (Staying with others, in a hotel, in a long-term, living outside on the street, on a beach, in a car, or in a park 05/11/[address] you li ve. Do you have problems with any of the following? None of the above 05/11/2023 Food Insecurity Answer Date Recorded Within the past 12 months, y ou worried that your food would run out before you got money to buy more: Never True 05/20/2023 Within the past 12 months,th e food you bought just didn't last and you didn't have enough money to get more: Never True Transportation Answer Date Recorded In the past 12 months, has l ack of transportation kept you from medical appts, meetings, work or from getting things needed for daily living? Yes, it has kept me from non-medical meetings, work, or getting things that I need 05/11/2023 Utilities Answer Date Recorded In the past 12 months, has t he electric, gas, oil or water company threatened to shut off services in your home? Yes 05/11/2023 Depression Answer Date Recorded Patient Health Questionnaire-2 Score 0 07/13/2023 Comments Unknown Sex and Gender Information Value Date Recorded Sex Assigned at Female 06/01/2022 10:22 AM EDT Legal Sex Female 10:22 AM EDT Gender Identity Female 06/01/2022 10:22 AM EDT Sexual Orientation Straight 06/01/2022 10 :22 AM EDT documented as of this encounter Miscellaneous Notes * Telephone Encounter - Isis Escalante - 10/22/2023 11:14 AM EDT Tc from pt requesting to speak with a nurse in regards to an LACD from needing to be filled out forthe DMV. Please contact pt at [phone] documented in this encounter Plan of Treatment Not on file documented as of this encounter Visit Diagnoses Not on filedocumented in this encounter Additional Health Concerns Assessment Noted Time PHQ-9 Depression Total Score: 1 07/13/20 23 9:41 AM EST documented as of this encounter Care Teams Industrial Welder Relationship Specialty Start Date End Date Emma Hoang MD [address] [place] [phone] PCP - General Internal Medicine 05/26/12 documented as of this encounter
--- OUTSIDE RECORDS SUMMARY | 2025-06-25 20:23 | XMS_ITS | Encounter Summary ---
Author Organization [employer] Address [address] 7[address] [place] [address] Care Team Providers Care Service Crew Leader Name Role Phone Emma Hoang MD Primary Care Provider [phone]- [phone] Reason for Visit * Reason Onset Date Comments Appointment Request 09/09/2023 Encounter Details Date Type Department Care Team (Late st Contact Info) Description 09/09/2023 Telephone [facility] MEDICINE [address] [place] [address] Emma Hoang MD [address] [place] [address] Appointment Request Social History Tobacco Use Types Packs/Day Years [...] with others, in a hotel, in a half-way, living outside on the street, on a [...] encounter Miscellaneous Notes * Telephone Encounter - Andrew Reyes - 09/09/2023 2:33 PM EST Tc from pt stating pcp needs to follow up with her regarding RMV paperwork. Please contact pt at [phone]. documented in this encounter Plan of Treatment Not on file documented as of this encounter Visit Diagnoses Not on filedocumented in this encounter Additional Health Concerns Assessment Noted Time PHQ-9 Depression Total Score: 1 07/13/20 23 9:41 AM EST documented as of this encounter Care Teams Service Crew Leader Relationship Specialty Start Date End Date Emma Hoang MD [address] [place] [id number] PCP - General Internal Medicine 05/26/12 documented as of this encounter
--- OUTSIDE RECORDS SUMMARY | 2025-06-25 20:23 | XMS_ITS | Encounter Summary ---
Author Organization [employer] Address [address] [facility] 7t [place] [address] Care Team Providers Care Shadowgraph Operator Name Role Phone Emma Hoang MD Primary Care Provider [phone]- [phone] Encounter Details Date Type Department Care Team ([facility] st Contact Info) Description 12/17/2023 Orders Only [facility] CHC MED & PEDS [address] [place], [place] [phone] Emma Hoang MD [address] [place] [address] Social History Tobacco Use Types Packs/Day Years [...] with others, in a hotel, in a prison, living outside on the street, on a [...] Procedure Name Priority Date/Time Associated Diagnosis Comments THINPREP IMAGING PAP AND HPV MRNA E6/E7 Routine 03/07/2024 12:00 AM EDT documented in this encounter Results * ThinPrep Imaging Pap and HPV mRNA E6/E7 (03/07/2024 12:00 AM EDT) HPV nRNA E6/E7 Not Detected Not Detected [facility] Comment:Methodology: Transcr iption-Mediated AmplificationThis assay detects E6/E7 viral messenger RNA (mRNA) from 14high-risk HPV types (16,18,31,33,35,39,45,51,52,56,58,59,66,68).Cervical sources are required for HPV testing.If a vaginal source from a patient who has had atotal hysterectomy with removal of cervix wassubmitted, please contact the testing laboratoryfor alternative testing options.For additional information, please refer [email or web address]/faq/SCL732o5(This link if provided for information/educational purposes only.)THIS TEST WAS PERFORMED AT:[facility] [address] [id number] MARCOS MD SOURCE: SEE NOTE [facility] Comment:None given Report Status: [facility] Clinical Information: SEE NOTE [facility] Comment:None given LMP: SEE NOTE [facility] Comment:NONE GIVEN Prev. PAP: SEE NOTE [facility] Comment:NONE GIVEN Prev. BX: SEE NOTE [facility] Comment:NONE GIVEN Statement Of Adequacy: SEE NOTE [facility] Comment:Satisfactory for abebe luation.Endocervical/transformation zone component absent. General Categorization: [facility] Interpretation/Result: SEE NOTE [facility] Comment:Cytology Results: Ne gative for intraepitheliallesion or malignancy. Cytology Comment SEE NOTE [facility] Comment:This case could not be evaluated with computerassisted technology. The slide was manuallyscreened according to routine procedures. Digital Photographer: SEE NOTE [facility] Comment:RPR, CT (ASCP) CT sc reening location: [place] [address] Review Digital Photographer: [facility] Pathologist [facility] PAP Infection [facility] See Note SEE [facility] Comment:EXPLANATORY NOTE:The Pap is a screening test for cervical cancer. It isnot a diagnostic test and is subject to false negativeand false positive results. It is most reliable when asatisfactory sample, regularly obtained, is submittedwith relevant clinical findings and history, and whenthe Pap result is evaluated along with historic andcurrent clinical information. 03/07/2024 03/07/2024 Narrative [facility] - 03/14/2024 12:49 PM EDT SEE SCANNED RESULTS IN EMR us Tana Tuttle MD LAB PATHOLOGY ORDERABLES Jolynn eulogio Result [facility] [address] [place] [address] [phone] documented in this encounter Visit Diagnoses Not on filedocumented in this encounter Additional Health Concerns Assessment Noted Time PHQ-9 Depression Total Score: 1 07/13/20 23 9:41 AM EST documented as of this encounter Care Teams Shadowgraph Operator Relationship Specialty Start Date End Date Emma Hoang MD [address] [place] [id number] PCP - General Internal Medicine 05/26/12 documented as of this encounter
--- OUTSIDE RECORDS SUMMARY | 2025-06-25 20:23 | XMS_ITS | Encounter Summary ---
Author Organization [employer] Address 75 [facility] 7t [place] [address] Care Team Providers Care Customer Professional Name Role Phone Emma Hoang MD Primary Care Provider [phone]- [phone] Encounter Details Date Type Department Care Team ([facility] st Contact Info) Description 04/22/2023 Abstract [facility] ADULT DENTAL [address] [place] [address] Renny Jara DDS [address] [place] [address] Social History Tobacco Use Types Packs/Day Years [...] Answer Date Recorded Patient Health Questionnaire-9 Score 4 11/09/2022 Depression Answer Date Recorded Patient Health Questionnaire-2 Score 1 11/09/2022 Comments Unknown Sex and Gender Information Value [...] Assessment Noted Time PHQ-9 Depression Total Score: 4 11/10/19 23 9:51 AM EDT documented as of this encounter Care Teams Customer Professional Relationship Specialty Start Date End Date Emma Hoang MD [address] [place] [address] PCP - General Internal Medicine 05/26/12 documented as of this encounter
--- OUTSIDE RECORDS SUMMARY | 2025-06-25 20:23 | XMS_ITS | Encounter Summary ---
Author Organization [employer] Address 75 [facility] 7t [place] [address] Care Team Providers Care Wax Room Supervisor Name Role Phone Emma Hoang MD Primary Care Provider [phone]- [phone] Encounter Details Date Type Department Care Team ([facility] st Contact Info) Description 09/27/2023 Telephone [facility] CHC MED & PEDS [address] [place], [place] [phone] Emma Hoang MD [address] [place] [address] Social History Tobacco Use Types Packs/Day Years [...] with others, in a hotel, in a mcfp, living outside on the street, on a [...] encounter Miscellaneous Notes * Telephone Encounter - Valerie Oconnor RN - 09/27/2023 12:56 PM EST Pt needs to contact DM for locations that can do these evaluations as we cannot. Pt has upcoming appt on 10/05/23 and can discuss further during appt. * Telephone Encounter - Ann Cardenas - 09/27/2023 12:31 PM EST TC from pt would like to know if pcp is license to di [facility] evaluation [facility] work [facility] . Please call pt to clarify . documented in this encounter Plan of Treatment Not on file documented as of this encounter Visit Diagnoses Not on filedocumented in this encounter Additional Health Concerns Assessment Noted Time PHQ-9 Depression Total Score: 1 07/13/20 23 9:41 AM EST documented as of this encounter Care Teams Wax Room Supervisor Relationship Specialty Start Date End Date Emma Hoang MD [address] [place] [address] PCP - General Internal Medicine 05/26/12 documented as of this encounter
--- OUTSIDE RECORDS SUMMARY | 2025-06-25 20:23 | XMS_ITS | Encounter Summary ---
Author Organization [employer] Address 75 [facility] 7 [place] [address] Care Team Providers Care Director Print Name Role Phone Emma Hoang MD Primary Care Provider [phone]- [phone] Reason for Visit * Reason Onset Date Comments triage 11/05/2022 Encounter Details Date Type Department Care Team ([facility] st Contact Info) Description 11/05/2022 Telephone C [facility] MED & PEDS [address] [place], [place] [phone] Emma Hoang MD [address] [place] [address] triage Social History Tobacco Use Types Packs/Day Years Used Date Smoking Tobacco: Every Day Cigarettes 0.3 34.9 Started: 08/02/1990 Smokeless Tobacco: Never Alcohol Answer Date Recorded How often do [...] encounter Miscellaneous Notes * Telephone Encounter - Lucretia Partida MA - 11/09/2022 9:45 AM EDT Sdoh referral Needs help with housing * Telephone Encounter - Sandra Pandey RN - 11/05/2022 2:08 PM EDT Triage call Pt reports high blood pressure lately due to increased stress. Pt was on BP meds for a while but, has been taken off because BP was resuming a better value. Pt is asymptomatic. Pt reportsyesterday BP was 195/ 127 but, today didn't take BP feels better. Pt is going to see PCP Wednesday morning 11/09. Advised Pt to begin to take BP daily in AM and PM and document on a piece of paper. Home care reviewed diet, exercise , rest. Pt agrees with disposition and Pt will seek evaluation if should develop symptoms of headache, blurred vision, difficulty breathing , talking, walking at the closest ED Protocol Used: Blood Pressure - High (Adult) Protocol-Based Disposition: Home Care Positive Triage Question: * Systolic BP between 120-129 with Diastolic < 80 * All higher-acuity triage questions were negative Care Advice Discussed: * Reassurance and Education - BP 120-129 / 80 * Reassurance and Education - BP under 120 / 80 * High Blood Pressure * High Blood Pressure - Lifestyle Modifications * How to Check Your Blood Pressure? * Reasons To Call Back - Headache, blurred vision, difficulty talking, or difficulty walking occurs - Chest pain or difficulty breathing occurs - You want to go into the office for a blood pressure check - You become worse * Telephone Encounter - Scott Dow - 11/05/2022 1:26 PM EDT Symptom: High Blood Pressure - Caller Reports Outcome: Schedule an urgent appointment (within 1 hour) or talk to a nurse or provider soon Reason: Getting worse The caller accepted this outcome Please contact pt at [phone] documented in this encounter Plan of Treatment Not on file documented as of this encounter Visit Diagnoses Not on filedocumented in this encounter Care Teams Director Print Relationship Specialty Start Date End Date Emma Hoang MD [address] [place] [id number] PCP - General Internal Medicine 05/26/12 documented as of this encounter
--- OUTSIDE RECORDS SUMMARY | 2025-06-25 20:23 | XMS_ITS | Encounter Summary ---
Author Organization [employer] Address 75 [facility] 7t [place] [address] Care Team Providers Care Interlacer Name Role Phone Emma Hoang MD Primary Care Provider [phone]- [phone] Encounter Details Date Type Department Care Team ([facility] st Contact Info) Description 04/15/2023 Abstract [facility] ADULT DENTAL [address] [place], [place] [phone] [place], Hannah [address] [place] [address] Social History Tobacco Use Types Packs/Day Years [...] documented as of this encounter Care Teams Interlacer Relationship Specialty Start Date End Date Emma Hoang MD [address] [place] [address] PCP - General Internal Medicine 05/26/12 documented as of this encounter
--- OUTSIDE RECORDS SUMMARY | 2025-06-25 20:23 | XMS_ITS | Encounter Summary ---
Author Organization [employer] Address 75 [facility] 7t [place] [address] Care Team Providers Care Carburetor Mechanic Name Role Phone Emma Hoang MD Primary Care Provider [phone]- [phone] Encounter Details Date Type Department Care Team ([facility] st Contact Info) Description 08/10/2024 Orders Only [facility] CHC MED & PEDS [address] [place], [place] [phone] Emma Hoang MD [address] [place] [address] Social History Tobacco Use Types Packs/Day Years [...] Recorded Patient Health Questionnaire-2 Score 0 07/13/2023 Internet Access Answer Date Recorded Internet Access [...] Time PHQ-9 Depression Total Score: 1 07/13/20 9:41 AM EST documented as of this encounter Care Teams Carburetor Mechanic Relationship Specialty Start Date End Date Emma Hoang MD [address] [place] [id number] PCP - General Internal Medicine 05/26/12 documented as of this encounter
--- OUTSIDE RECORDS SUMMARY | 2025-06-25 20:23 | XMS_ITS | Encounter Summary ---
Author Organization [employer] Address 75 [facility] 7t [place] [address] Care Team Providers Care Ripsaw Operator Name Role Phone Emma Hoang MD Primary Care Provider +1- [phone] Encounter Details Date Type Department Care Team ([facility] st Contact Info) Description 03/16/2025 Orders Only [facility] CHC MED & PEDS [address] [place], [place] [phone] Emma Hoang MD [address] [place] [address] Social History Tobacco Use Types Packs/Day Years [...] Time PHQ-9 Depression Total Score: 0 09/28/19 9:55 AM EST documented as of this encounter Care Teams Ripsaw Operator Relationship Specialty Start Date End Date Emma Hoang MD [address] [place] [id number] PCP - General Internal Medicine 05/26/12 documented as of this encounter
--- OUTSIDE RECORDS SUMMARY | 2025-06-25 20:23 | XMS_ITS | Encounter Summary ---
Author Organization [employer] Address 75 [facility] 7t [place] [address] Care Team Providers Care Motion Picture Operator Name Role Phone Emma Hoang MD Primary Care Provider Reason for Visit * Reason Comments Med Change Request Encounter Details Date Type Department Care Team ([facility] st Contact Info) Description 02/24/2023 Refill C [facility] MED & PEDS [address] [place], [place] [phone] Emma Hoang MD [address] [place] [address] Social History Tobacco Use Types Packs/Day Years [...] Orientation Straight 06/01/2022 10 :22 AM EDT COVID-19 Exposure Response Date Recorded In the last 10 days, have yo u been in contact with someone who was confirmed or suspected to have Coronavirus/COVID-19? No / Unsure 01/28/2023 8:02 AM EDT documented as of this encounter Miscellaneous Notes * Telephone Encounter - Emma Hoang MD - 02/24/2023 3:30 PM EDT Dose change. documented in this encounter Plan of Treatment Not on file documented as of this encounter Visit Diagnoses Not on filedocumented in this encounter Additional Health Concerns Assessment Noted Time PHQ-9 Depression Total Score: 4 11/10/19 23 9:51 AM EDT documented as of this encounter Care Teams Motion Picture Operator Relationship Specialty Start Date End Date Emma Hoang MD [address] [place] [phone] PCP - General Internal Medicine 05/26/12 documented as of this encounter
--- OUTSIDE RECORDS SUMMARY | 2025-06-25 20:23 | XMS_ITS | Encounter Summary ---
Author Organization [email or web address] Address 75 [facility] 7 [place] [address] Care Team Providers Care Quantitative Equity Head Name Role Phone Emma Hoang MD Primary Care Provider [phone] Reason for Visit * Reason Onset Date Comments Lab Orders 02/11/2023 Encounter Details Date Type Department Care Team ([facility] st Contact Info) Description 02/11/2023 Telephone [facility] CHC MED & PEDS [address] [place], [place] [phone] Emma Hoang MD [address] [place] [address] Lab Orders Social History Tobacco Use Types Packs/Day Years [...] encounter Miscellaneous Notes * Telephone Encounter - Tricia Baez RN - 02/12/2023 1:46 PM EDT There is an active drug screen/urine still active in chart but it is for [facility]. Would you mind re-ordering so it is appropriate for [facility]? Thank you * Telephone Encounter - Isis Escalante - 02/11/2023 2:21 PM EDT Tc from pt requesting a re-order for a urine drug screen. States she needs it for a program. documented in this encounter Plan of Treatment Not on file documented as of this encounter Visit Diagnoses Diagnosis Alcohol use disorder- Primary documented in this encounter Additional Health Concerns Assessment Noted Time PHQ-9 Depression Total Score: 4 11/10/19 23 9:51 AM EDT documented as of this encounter Care Teams Quantitative Equity Head Relationship Specialty Start Date End Date Emma Hoang MD [address] [place] [address] PCP - General Internal Medicine 05/26/12 documented as of this encounter
--- OUTSIDE RECORDS SUMMARY | 2025-06-25 20:23 | XMS_ITS | Clinical Summary ---
Author Organization [employer] Address 75 [facility] 7t [place] [address] Care Team Providers Care National Opelint Analyst Name Role Phone Emma Hoang MD Primary Care Provider Allergies No known active allergies Medications albuterol 108 (90 Base) MCG/ACT inhaler inhale 2 puff by inhalation route every 4 - 6 hours as needed 1 Active acetaminophen (Tylenol) 500 MG tabletIndications :Necrosis of dental pulp,Dental abscess Take 1 tablet (500 mg) by mouth every 6 (six) hours if needed for mild pain for up to 20 doses. 20 tablet 3 Active Sod Fluoride-Potassiu m Nitrate 1.1-5 % pasteIndications: Dental caries Aiken teeth for 2 minutes, morning and night. Spit, do not rinse. Do not eat or drink anything for 30 minutes following brushing. 112 g 3 3 Active Aspirin Low Dose 81 MG chewable tablet TAKE 1 TABLET BY MOUTH EVERY DAY 3 Active chlorhexidine (Peridex) 0.12 % solutionIndicatio ns:Symptomatic irreversible pulpitis Swish 15 mL morning and night for 1 minute. Spit, do not swallow. Do not eat or drink for 30 minutes following use. 473 mL 4 Active Zepbound 2.5 MG/0.5ML solution auto-injectorIndi cations:Obesity (BMI 30-39.9) INJECT 0.5 ML (2.5 MG) UNDER THE SKIN 1 (ONE) TIME PER WEEK. 2 mL 1 5 Active naltrexone (Depade) 50 MG tablet Take 1 tablet by mouth Once per day. 5 Active amLODIPine (Norvasc) 5 MG tabletIndications :Primary hypertension TAKE 1 TABLET BY MOUTH EVERY DAY IN THE MORNING 90 tablet 5 Active atorvastatin (Lipitor) 10 MG tabletIndications :Primary hypertension TAKE 1 TABLET BY MOUTH EVERY DAY IN THE MORNING 90 tablet 1 5 Active hydrOXYzine HCl (Atarax) 25 MG tablet TAKE 2 TABLETS BY MOUTH 3 TIMES A DAY NEEDED 180 tablet 5 Active Active Problems Problem Noted Date Diagnosed Date Abnormal uterine bleeding 01/30/2025 Assessment & Plan (01/30/2025 11:29 AM EDT): Will send testing and f/up on results Ddx perimenopause vs other causes of AUB Essential (primary) hypertension 01/05/2024 Periodontal disease 01/04/2024 Dental calculus 01/04/2024 DELROY (obstructive sleep apnea) 04/01/2023 Current tobacco use 04/01/2023 Resolved Problems Problem Noted Date Diagnosed Date Resolved Date Cervical cancer screening 03/07/2024 Assessment & Plan (03/07/2024 11:34 AM EDT): 43 y.o. here for cervical cancer screening. Will continue monitoring following ASCCP guidelines. Encounters Date Type Department Care Team Description 06/08/2025 Telephone [facility] MED & PEDS [address] [place] [address] Emma Hoang MD 06/08/2025 Telephone [facility] MED & PEDS [address] [place] [address] Emma Hoang MD 06/08/2025 Telephone [facility] MED & PEDS [address] [place] [address] Emma Hoang MD recall appt 06/08/2025 Telephone [facility] MED & PEDS [address] [place] [address] Emma Hoang MD recall appt 05/25/2025 Telephone [facility] MED & PEDS [address] [place] [address] Emma Hoang MD Chart Prep 05/18/2025 Patient Outreach [facility] MEDICINE [address] [place] [address] Emma Hoang MD Pre-visit Planning (Pre visit planning LVM ) 03/27/2025 Refill [facility] CHC MED & PEDS [address] [place] [address] Tana Tuttle MD 03/26/2025 Refill [facility] CHC MED & PEDS [address] [place] [address] Emma Hoang MD Primary hypertension from Last 3 Months Immunizations Immunization Administration Dates Next Due TD (adult), 2 Lf tetanus tox oid, preservative free, adsorbed 06/06/2021 Tdap 11/12/2014,11/25/2010 Tetanus Toxoid, Unspecified 01/30/2003 Family History Medical History Relation Name Comments Hypertension Father Prediabetes Father Multiple myeloma Mother Relation Name Status Comments Father Mother Social History Tobacco Use Types Packs/Day Years Used Date Smoking Tobacco: Every Day Cigarettes 0.3 34.9 Started: 08/02/1990 Smokeless Tobacco: Never Tobacco Cessation:Ready to Q uit: Not Asked; Counseling Given: Not Answered Alcohol Use Standard Drinks/Week Comments Yes 5 [...] Orientation Straight 06/01/2022 10 :22 AM EDT Last Filed Vital Signs Vital Sign Reading Time Taken Comments Blood Pressure 151/91 01/30/2025 10:59 AM EDT Pulse 62 01/30/2025 10:59 AM EDT Temperature 36.8 C (98.2 F) 01/30/2025 10:59 AM EDT Respiratory Rate 16 01/30/2025 10:59 AM EDT Oxygen Saturation 99% 01/30/2025 10:59 AM EDT Inhaled Oxygen Concentration - - Weight 83.5 kg (184 lb) 01/30/2025 10:59 AM EDT Height 158.1 cm (5' 2.25 ) 01/30/2025 10:59 AM E DT Body Mass Index 33.38 01/30/2025 10:59 AM EDT Plan of Treatment Health Maintenance Due Date Last Done Comments HIV Screening 1981 Disability Screening 1981 Family Planning (PISQ) 1996 HPV Vaccines (1 - 3-dose series) 1996 Hepatitis C Screening 1999 Hepatitis B Vaccines (1 of 3 - 19+ 3-dose series) 2000 Pneumococcal Vaccine: Pediatrics (0 to 5 Years) and At-Risk Patients (6 to 49) Years (1 of 2 - PCV) 2000 Mammogram 2021 Dental Oral Exam 09/09/2023 03/08/2023, 08/26/2011 Dental Prophylaxis 09/30/2023 03/29/2023 SDOH Screening 02/21/2025 02/22/2024 COVID-19 Vaccine (1 - season) 2025 Influenza Vaccine (#1) 2025 Dental X-Ray: Bitewings 05/30/2025 05/29/20 24, 01/04/2024, 03/08/2023, Additional history exists Alcohol/Substance Use Screening 09/28/2025 09/28/2024 Depression Screening 09/28/2025 09/28/2024, 09/28/19 Tobacco Screening 01/30/2026 01/30/2025 Dental X-Ray: Full Mouth 03/09/2026 03/08/2023, 08/03 Lipid Panel 07/13/2028 07/13/2023 HPV/Cotest 03/07/2029 03/07/2024 Cervical Cancer Screening 01/17/2030 Pap Smear 01/17/2030 01/17/2025, 08/01/2024, 03/07/2024 Zoster Vaccines (1 of 2) 2031 DTaP/Tdap/Td Vaccines (4 - Td or Tdap) 06/06/2031 06/06/2021, 11/12/2014, 11/25/2010, Additional history exists RSV Patients and Patients Aged 60 years or older (1 - 1-dose 75+ series) 2056 HIB Vaccines Aged Out No longer eligi ble based on patient's age to complete this topic Hepatitis A Vaccines Aged Out No long er eligible based on patient's age to complete this topic IPV Vaccines Aged Out No longer eligi ble based on patient's age to complete this topic Meningococcal B Vaccine Aged Out No l onger eligible based on patient's age to complete this topic Meningococcal Vaccine Aged Out No steve musa eligible based on patient's age to complete this topic RSV under 20 months Aged Out No longe r eligible based on patient's age to complete this topic Rotavirus Vaccines Aged Out No longer eligible based on patient's age to complete this topic Procedures Procedure Name Priority Date/Time Associated Diagnosis Comments BITEWING - SINGLE RADIOGRAPHIC IMAGE Routine 2024 11:30 AM EDT Symptomatic irreversible pulpitis THINPREP IMAGING PAP AND HPV MRNA E6/E7 Routine 03/07/2024 12:00 AM EDT LIPID PANEL, STANDARD Routine 07/13/2023 10:11 AM EST Primary hypertension PROPHYLAXIS - ADULT Routine 03/29/2023 8 :00 AM EDT Periodontal disease INTRAORAL - COMPLETE SERIES OF RADIOGRAPHIC IMAGES Routine 03/08/2023 8:00 AM EDT Dental caries COMPREHENSIVE ORAL EVALUATION - NEW OR ESTABLISHED PATIENT Routine 03/08/2023 8:00 AM EDT Dental caries from Last 3 Months or Most Recently Relevant to Health Maintenance Results * ThinPrep Imaging Pap and HPV mRNA E6/E7 (03/07/2024 12:00 AM EDT) HPV nRNA E6/E7 Not Detected Not Detected [facility] Comment:Methodology: Transcr iption-Mediated AmplificationThis assay detects E6/E7 viral messenger RNA (mRNA) from 14high-risk HPV types (16,18,31,33,35,39,45,51,52,56,58,59,66,68).Cervical sources are required for HPV testing.If a vaginal source from a patient who has had atotal hysterectomy with removal of cervix wassubmitted, please contact the testing laboratoryfor alternative testing options.For additional information, please refer [email or web address].LoveByte/faq/BZP093v2(This link if provided for information/educational purposes only.)THIS TEST WAS PERFORMED AT:[facility] [place] [phone] MARCOS MD SOURCE: SEE NOTE [facility] Comment:None given Report Status: TNP [facility] Clinical Information: SEE NOTE [facility] Comment:None given LMP: SEE NOTE [facility] Comment:NONE GIVEN Prev. PAP: SEE NOTE [facility] Comment:NONE GIVEN Prev. BX: SEE NOTE [facility] Comment:NONE GIVEN Statement Of Adequacy: SEE NOTE [facility] Comment:Satisfactory for abebe luation.Endocervical/transformation zone component absent. General Categorization: [facility] Interpretation/Result: SEE NOTE [facility] Comment:Cytology Results: Ne gative for intraepitheliallesion or malignancy. Cytology Comment SEE NOTE [facility] Comment:This case could not be evaluated with computerassisted technology. The slide was manuallyscreened according to routine procedures. Contact Lens Molder: SEE NOTE [facility] Comment:RPR, CT (ASCP) CT sc reening location: [place] [address] Review Contact Lens Molder: [facility] Pathologist [facility] PAP Infection [facility] See Note SEE NOTE [facility] Comment:EXPLANATORY NOTE:The Pap is a screening test for cervical cancer. It isnot a diagnostic test and is subject to false negativeand false positive results. It is most reliable when asatisfactory sample, regularly obtained, is submittedwith relevant clinical findings and history, and whenthe Pap result is evaluated along with historic andcurrent clinical information. 03/07/2024 03/07/2024 Narrative [facility] - 03/14/2024 12:49 PM EDT SEE SCANNED RESULTS IN EMR us Tana Tuttle MD LAB PATHOLOGY ORDERABLES Jolynn l Result [facility] [address] [place] [address] [phone] * Lipid Panel, Standard (07/13/2023 10:11 AM EST) Triglycerides 39 <150 mg/dL [facility] Comment:Desirable Triglyceri de: less than 150 mg/dLBorderline High Triglyceride 150-199 mg/dLHigh Triglyceride: 200-499 mg/dLVery High Triglyceride: greater than or equal to 5OO mg/dL Cholesterol 139 <200 mg/dL [facility] Comment:Desirable Cholestero l: less than 200 mg/dLBorderline High Cholesterol: 200-239 mg/dLHigh Cholesterol: greater than 239 mg/dL LDL Cholesterol Calculated 68 <100 mg/dL [facility] Comment:Desirable LDL: less than 100 mg/dLNear Optimal/Above Optimal LDL: 110- 129 mg/dLBorderline High LDL: 130-159 mg/dLHigh LDL: 160-189 mg/dLVery High LDL: greater than or equal to 190 mg/dL HDL Cholesterol 64 >40 mg/dL [facility] Comment:Desirable HDL: great er than 40 mg/dL Note: This HDL assay may give artificially low results in patients with liver disease. Blood Venous blood specimen / Unknown 07/13/2023 10:11 AM EST 07/13/2023 2:40 PM EST us Emma Hoang MD LAB BLOOD ORDERABLES Final Result [facility] [address] [place] [phone] from Last 3 Months or Most Recently Relevant to Health Maintenance Insurance [facility] C3 DENTAL-[facility] MEDICAID STAND ADULT Care Teams National Opelint Analyst Relationship Specialty Start Date End Date Emma Hoang MD [address] [place] [id number] PCP - General Internal Medicine 05/26/12
--- OUTSIDE RECORDS SUMMARY | 2025-06-25 20:23 | XMS_ITS | Encounter Summary ---
Author Organization [employer] Address 75 [facility] 7t [place] [address] Care Team Providers Care Toolmaker Grade Three Name Role Phone Emma Hoang MD Primary Care Provider +1- [phone] Reason for Visit * Reason Onset Date Comments medication conflict 02/23/2024 Encounter Details Date Type Department Care Team ([facility] st Contact Info) Description 02/23/2024 Telephone [facility] CHC ADULT DENTAL [address] [place], [place] [phone] Brijesh Gordon, DMD [address] [place] [address] medication conflict Social History Tobacco Use Types [...] - 02/23/2024 1:16 PM EDT Guillermina from [facility] calling to verify oxycodone script. It is bumping up again the vivitrol injection and another acetominophen that patient has scripted as well . Looking for verification prior to contacting insurance. Reach out to pharmacy [phone] Guillermina GAY documented in this encounter Plan of Treatment Not on file documented as of this encounter Visit Diagnoses Not on filedocumented in this encounter Additional Health Concerns Assessment Noted Time PHQ-9 Depression Total Score: 1 07/13/20 23 9:41 AM EST documented as of this encounter Care Teams Toolmaker Grade Three Relationship Specialty Start Date End Date Emma Hoang MD [address] [place] [address] PCP - General Internal Medicine 05/26/12 documented as of this encounter
--- OUTSIDE RECORDS SUMMARY | 2025-06-25 20:23 | XMS_ITS | Encounter Summary ---
Author Organization [employer] Address [address] [facility] [address] 7[address] [place] [address] Care Team Providers Care Animal Shelter Supervisor Name Role Phone Emma Hoang MD Primary Care Provider +1- [phone] Encounter Details Date Type Department Care Team ([facility] st Contact Info) Description 01/17/2025 Abstract [facility] CHC MED & PEDS [address] [place], [place] [phone] Clay [place] Social History Tobacco Use Types Packs/Day Years [...] documented as of this encounter Care Teams Animal Shelter Supervisor Relationship Specialty Start Date End Date Emma Hoang MD 505 [place] [address] PCP - General Internal Medicine 05/26/12 documented as of this encounter
--- OUTSIDE RECORDS SUMMARY | 2025-06-25 20:23 | XMS_ITS | Encounter Summary ---
Author Organization [employer] Address [address] [facility] 7 [place] [address] Care Team Providers Care Spray Gun Repairer Helper Name Role Phone Emma Hoang MD Primary Care Provider +1- [phone] Reason for Visit * Reason Onset Date Comments Appointment Request 12/17/2023 Encounter Details Date Type Department Care Team ([facility] st Contact Info) Description 12/17/2023 Telephone [facility] CHC MED & PEDS [address] [place], [place] [phone] Emma Hoang MD 505 [place] [address] Appointment Request Social History Tobacco Use Types [...] with others, in a hotel, in a halfway, living outside on the street, on a [...] encounter Miscellaneous Notes * Telephone Encounter - Scott Dow - 12/17/2023 1:26 PM EDT TC from pt requesting medication refill. Medications needing refill : hydrOXYzine HCl (Atarax) 25 MG tablet To be sent to: [facility]/pharmacy #[id number] - [facility] [address] [facility] documented in this encounter Plan of Treatment Not on file documented as of this encounter Visit Diagnoses Not on filedocumented in this encounter Additional Health Concerns Assessment Noted Time PHQ-9 Depression Total Score: 1 07/13/20 23 9:41 AM EST documented as of this encounter Care Teams Spray Gun Repairer Helper Relationship Specialty Start Date End Date Emma Hoang MD [address] [place] [address] PCP - General Internal Medicine 05/26/12 documented as of this encounter
--- OUTSIDE RECORDS SUMMARY | 2025-06-25 20:23 | XMS_ITS | Encounter Summary ---
Author Organization [employer] Address 75 [facility] 7t [place] [address] Care Team Providers Care Mouse Breeder Name Role Phone Emma Hoang MD Primary Care Provider +1- [phone] Reason for Visit * Reason Onset Date Comments Call Back Request 01/05/2024 Encounter Details Date Type Department Care Team ([facility] st Contact Info) Description 01/05/[address] [facility] MEDICINE [address] [place] [address] Emma Hoang MD 505 [place] [address] Call Back Request Social History Tobacco Use Types Packs/Day [...] with others, in a hotel, in a assisted, living outside on the street, on a [...] encounter Miscellaneous Notes * Telephone Encounter - Wesley Castle - 01/05/2024 3:34 PM EDT Tc from patient calling to request what time was the appt for the ART FRAMING MANAGER stated it was requested byprovider however card writer hand does not see anything on patients chart documented in this encounter Plan of Treatment Not on file documented as of this encounter Visit Diagnoses Not on filedocumented in this encounter Additional Health Concerns Assessment Noted Time PHQ-9 Depression Total Score: 1 07/13/20 23 9:41 AM EST documented as of this encounter Care Teams Mouse Breeder Relationship Specialty Start Date End Date Emma Hoang MD [address] [place] [address] PCP - General Internal Medicine 05/26/12 documented as of this encounter
--- OUTSIDE RECORDS SUMMARY | 2025-06-25 20:23 | XMS_ITS | Encounter Summary ---
Author Organization [employer] Address [address] [facility] 7 [place] [address] Care Team Providers Care Reefer Truck Driver Name Role Phone Emma Hoang MD Primary Care Provider +1- [phone] Reason for Visit * Reason Onset Date Comments Appointment Request 06/28/2023 Encounter Details Date Type Department Care Team ([facility] st Contact Info) Description 06/28/2023 Telephone [facility] CHC MED & PEDS [address] [place], [place] [phone] Emma Hoang MD 505 [place] [address] Appointment Request Social History Tobacco Use Types [...] Recorded Patient Health Questionnaire-9 Score 4 11/09/2022 Housing Stability Answer Date Recorded What is your housing situation today? I do not have housing (Staying with others, in a hotel, in a senior living, living outside on the street, on a [...] * Telephone Encounter - Scott Dow - 06/28/2023 2:32 PM EST Tc from pt requesting an appt with provider in regards to her license Suspension. Pt states that License was suspension on September of 2022 and in order to restore Drivers license Pt must have a Loss ofconsciousness form and an Evaluation Form is needed as well . Please contact pt at [phone] documented in this encounter Plan of Treatment Not on file documented as of this encounter Visit Diagnoses Not on filedocumented in this encounter Additional Health Concerns Assessment Noted Time PHQ-9 Depression Total Score: 4 11/10/19 23 9:51 AM EDT documented as of this encounter Care Teams Reefer Truck Driver Relationship Specialty Start Date End Date Emma Hoang MD [address] [place] [address] PCP - General Internal Medicine 05/26/12 documented as of this encounter
--- OUTSIDE RECORDS SUMMARY | 2025-06-25 20:23 | XMS_ITS | Encounter Summary ---
Author Organization [employer] Address [address] [facility] [address] [address] 7[address] [place] [address] Care Team Providers Care Lumber Chain Offbearer Name Role Phone Emma Hoang MD Primary Care Provider +1- [phone] Encounter Details Date Type Department Care Team ([facility] st Contact Info) Description 01/17/2025 Abstract [facility] CHC MED & PEDS [address] [place], [place] [phone] Clay Lutz [place] Social History Tobacco Use Types Packs/Day Years [...] documented as of this encounter Care Teams Lumber Chain Offbearer Relationship Specialty Start Date End Date Emma Hoang MD [address] [place] [address] PCP - General Internal Medicine 05/26/12 documented as of this encounter
--- OUTSIDE RECORDS SUMMARY | 2025-06-25 20:23 | XMS_ITS | Encounter Summary ---
Author Organization [employer] Address 75 [facility] 7t [place] [address] Care Team Providers Care High Value Associate Name Role Phone Emma Hoang MD Primary Care Provider Reason for Visit * Reason Onset Date Comments Appointment Request 01/28/2024 Encounter Details Date Type Department Care Team ([facility] st Contact Info) Description 01/28/2024 Telephone [facility] MEDICINE [address] [place] [address] Emma Hoang MD [address] [place], [place] [phone] Appointment Request Social History Tobacco Use Types [...] * Telephone Encounter - Andrew Reyes - 01/28/2024 1:12 PM EDT Tc from pt requesting to reschedule pap smear with Dr. Tuttle 01/25. Please contact pt at [phone]. documented in this encounter Plan of Treatment Not on file documented as of this encounter Visit Diagnoses Not on filedocumented in this encounter Additional Health Concerns Assessment Noted Time PHQ-9 Depression Total Score: 1 07/13/20 23 9:41 AM EST documented as of this encounter Care Teams High Value Associate Relationship Specialty Start Date End Date Emma Hoang MD [address] [place] [address] PCP - General Internal Medicine 05/26/12 documented as of this encounter
--- OUTSIDE RECORDS SUMMARY | 2025-06-25 20:23 | XMS_ITS | Encounter Summary ---
Author Organization [employer] Address 75 [facility] 7t [place] [address] Care Team Providers Care Detailer Furniture Name Role Phone Emma Hoang MD Primary Care Provider +1- [phone] Reason for Visit * Reason Onset Date Comments reschedule appt 05/11/2023 Encounter Details Date Type Department Care Team ([facility] st Contact Info) Description 05/11/2023 Telephone [facility] ADULT DENTAL [address] [place] [address] Brijesh Gordon, DMD 505 [place] [address] reschedule appt Social History Tobacco Use Types Packs/Day Years [...] got money to buy more: Never True 05/11/2023 Within the past 12 months,th e food you bought just didn't last and you didn't have enough money to get more: Never True 05/2023 Transportation Answer Date Recorded In the past [...] * Telephone Encounter - Gabrielle Burt - 05/11/2023 10:19 AM EDT Patient called in to reschedule appt cancelled via interface today DR documented in this encounter Plan of Treatment Not on file documented as of this encounter Visit Diagnoses Not on filedocumented in this encounter Additional Health Concerns Assessment Noted Time PHQ-9 Depression Total Score: 4 11/10/19 23 9:51 AM EDT documented as of this encounter Care Teams Detailer Furniture Relationship Specialty Start Date End Date Emma Hoang MD [address] [place] [address] PCP - General Internal Medicine 05/26/12 documented as of this encounter
--- OUTSIDE RECORDS SUMMARY | 2025-06-25 20:23 | XMS_ITS | Encounter Summary ---
Author Organization [employer] Address 75 [facility] 7t [place] [address] Care Team Providers Care Firepot Operator And Tender Name Role Phone Emma Hoang MD Primary Care Provider Reason for Referral * Imaging (Routine) - Closed Specialty Diagnoses / Procedures Referred By Declan white Referred To Contact Radiology Diagnoses Encounter for screening mammogram for malignant neoplasm of breast Procedures BI Mammogram Screening Tomosynthesis Bilateral Emma Hoang MD [address] [place] [address] Phone: tel: fax: [facility] Referral ID Status Reason Start Date Expiration Date Visits Re quested Visits Authorized [id number] Closed 08/30/2024 08/30/2025 1 1 Encounter Details Date Type Department Care Team (Late st Contact Info) Description 08/30/2024 Orders Only [facility] CHC MED & PEDS [address] [place] [address] Emma Hoang MD [address] [place] [address] Encounter for screening mammogram for malignant neoplasm of breast (Primary Dx) Social History Tobacco Use Types Packs/Day Years [...] as of this encounter Plan of Treatment Scheduled Orders Name Type Priority Associated Diagnoses Orde r Schedule BI Mammogram Screening Tomosynthesis Bilateral Imaging Routine Encounter for screening mammogram for malignant neoplasm of breast Expected: 08/30/2024, Expires: 10/28/2025 documented as of this encounter Visit Diagnoses Diagnosis Encounter for screening mammogram for malignant neoplasm of breast- Primary documented in this encounter Additional Health Concerns Assessment Noted Time PHQ-9 Depression Total Score: 1 07/13/20 23 9:41 AM EST documented as of this encounter Care Teams Firepot Operator And Tender Relationship Specialty Start Date End Date Emma Hoang MD [address] [place] [address] PCP - General Internal Medicine 05/26/12 documented as of this encounter
--- OUTSIDE RECORDS SUMMARY | 2025-06-25 20:23 | XMS_ITS | Encounter Summary ---
Author Organization [employer] Address 75 [facility] 7t [place] [address] Care Team Providers Care Resp Therapist Name Role Phone Emma Hoang MD Primary Care Provider Encounter Details Date Type Department Care Team ([facility] st Contact Info) Description 12/22/2022 Orders Only [facility] CHC MED & PEDS [address] [place], [place] [phone] Emma Hoang MD [address] [place] [address] Screening for tuberculosis (Primary Dx) Social History Tobacco Use Types [...] suspected to have Coronavirus/COVID-19? No / Unsure 11/27/2022 10:10 AM EDT documented as of this encounter Plan of Treatment Not on file documented as of this encounter Procedures Procedure Name Priority Date/Time Associated Diagnosis Comments QUANTIFERON(R)-TB GOLD PLUS, 1 TUBE Routine 12/30/2022 11:16 AM EDT Screening for tuberculosis documented in this encounter Results * QuantiFERON??-TB Gold Plus, 1 Tube (12/30/2022 11:16 AM EDT) [facility] Quantiferon -TB Gold Plus, 1 Tube NEGATIVE NEGATIVE [facility] [place] [facility] Comment: Negative test result. M. tuberculosis complex infection unlikely. NIL 0.06 IU/mL [facility] [place] [employer] MITOGEN-NIL >10.00 IU/mL [facility] [place] [employer] TB1-NIL 0.01 IU/mL [facility] [place] [employer] [facility] TB2-NIL <0.00 IU/mL [facility] [place] [employer] Comment: The Nil tube value reflects the background interferon gamma immune response of the patient's blood sample. This value has been subtracted from the patient's displayed TB and Mitogen results. Lower than expected results with the Mitogen tube prevent false-negative Quantiferon readings by detecting a patient with a potential immune suppressive condition and/or suboptimal pre-analytical specimen handling. The TB1 Antigen tube is coated with the M. tuberculosis-specific antigens designed to elicit responses from TB antigen primed CD4+ helper T-lymphocytes. The TB2 Antigen tube is coated with the M. tuberculosis-specific antigens designed to elicit responses from TB antigen primed CD4+ helper and CD8+ cytotoxic T-lymphocytes. For additional information, please refer to https://education.Spoqa.Room n House/faq/OCP906 (This link is being provided for informational/ educational purposes only.) Blood Venous blood specimen / Unknown 12/30/2022 11:16 AM EDT 12/30/2022 11:17 AM EDT Emma Hoang MD LAB BLOOD ORDERABLES Final Result [facility] [address] [facility], [place] [address] [facility] [address] [place] [address] documented in this encounter Visit Diagnoses Diagnosis Screening for tuberculosis- Primary Screening examination for pulmonary tuberculosis documented in this encounter Additional Health Concerns Assessment Noted Time PHQ-9 Depression Total Score: 4 11/10/19 23 9:51 AM EDT documented as of this encounter Care Teams Resp Therapist Relationship Specialty Start Date End Date Emma Hoang MD [address] [place] [address] PCP - General Internal Medicine 05/26/12 documented as of this encounter
== END 2025-06-25 16:15 | disposition home or self-care (01) ==
LOC: HO.MAMMO 16:14
PROVIDERS: PCP Family Medicine; Visit Provider Family Medicine
DX: Z12.31 Encounter for screening mammogram for malignant neoplasm of breast (principal)
CPT/HCPCS: 77063; 77067